=== PATIENT | female | born 1980 | race Caucasian/White ===

== ENCOUNTER 2021-05-31 21:18 | Inpatient (IN) | payer BC ==
[~2021-05-31] VITALS: Ht 172.7 cm; Wt 53.5 kg
--- NOTE | 2021-05-31 21:55 | NUR ---
Pt. cc hematuria and dysuria starting today. Pain 12/29. Vss.
--- NOTE | 2021-05-31 22:26 | NUR ---
Pt. reports her pain has worsened to 9/10, she also has a headache and flank pain. Dr. Altamirano made aware. Will continue to monitor.
--- NOTE | 2021-05-31 22:37 | NUR ---
Dr. Altamirano at bedside for mse.
[2021-05-31] MEDS ORDERED: IV NORMAL SALINE 1000 ML BAG IV ONE (22:45)
[2021-05-31] MEDS ORDERED: CEFTRIAXONE 1 G in IV DEXTROSE 5% 50 ML IV ONE (22:45)
[2021-05-31] MEDS ORDERED: MORPHINE SULFATE 2 MG/1 ML DISP.SYRIN IV ONE (22:45)
[2021-05-31] MEDS ORDERED: ONDANSETRON 4 MG/2 ML VIAL IV ONE (22:45)
[2021-05-31] MEDS ORDERED: MORPHINE SULFATE 2 MG/1 ML DISP.SYRIN ONE (22:57)
[2021-05-31] MEDS ORDERED: MORPHINE SULFATE 4 MG/1 ML DISP.SYRIN ONE (22:57)
[2021-05-31] MEDS ORDERED: ONDANSETRON 4 MG/2 ML VIAL ONE (22:57)
[2021-05-31] MEDS ORDERED: CEFTRIAXONE /D5W 50ML IVPB **ER PYXIS IV ONE (22:58)
[2021-05-31 23:06] LABS: HEMATOCRIT 35.3 % (31.2-41.9); MEAN CORPUSCULAR HEMOGLOBIN 27.8 uug (24.7-32.8); MEAN CORPUSCULAR VOLUME 84.5 fL (75.5-95.3); PLATELET COUNT (AUTO) 232 K/uL (179-408)
[2021-05-31 23:26] LABS: BILIRUBIN,DIRECT 0.1 mg/dL (0.0-0.2); BILIRUBIN,TOTAL 0.2 mg/dL (0.2-1.0); CREATININE 0.8 mg/dL (0.6-1.3); POTASSIUM 4.1 mmol/L (3.5-5.1); TOTAL PROTEIN, SERUM 6.6 g/dL (6.4-8.2)
--- NOTE | 2021-06-01 00:20 | NUR ---
US at bedside
[2021-06-01] MEDS ORDERED: MORPHINE SULFATE 10 MG/1 ML DISP.SYRIN IV ONE (01:15)
[2021-06-01] MEDS ORDERED: PROG100C15 PO (01:33)
[2021-06-01] MEDS ORDERED: testosterone (01:33)
[2021-06-01] MEDS ORDERED: ESCI5TAB PO (01:33)
[2021-06-01] MEDS ORDERED: MINO2.5T PO (01:33)
[2021-06-01] MEDS ORDERED: PRED20TA PO (01:33)
[2021-06-01] MEDS ORDERED: TAMS-3 PO (01:33)
[2021-06-01] MEDS ORDERED: CIPR-262 PO (01:33)
[2021-06-01 01:34] LABS: *BILIRUBIN,URIN NEGATIVE (NEGATIVE); *BLOOD, URINE NEGATIVE (NEGATIVE); *CLARITY,URINE CLEAR (CLEAR); *COLOR,URINE YELLOW (YELLOW); *KETONES,URINE NEGATIVE (NEGATIVE); *UROBILINOGEN,URINE 0.2 E.U./dl (NORMAL); LEUKOCYTE ESTERASE ,URINE NEGATIVE (NEGATIVE); NITRITE, URINE NEGATIVE (NEGATIVE); UGLUCOSE NEGATIVE (NEGATIVE)
[2021-06-01] MEDS ORDERED: MORPHINE SULFATE 4 MG/1 ML DISP.SYRIN ONE (01:37)
[2021-06-01] MEDS ORDERED: MORPHINE SULFATE 2 MG/1 ML DISP.SYRIN ONE (01:38)
[2021-06-01 01:39] LABS: *URINE HCG, QUAL NEGATIVE (NEGATIVE)
[2021-06-01] MEDS ORDERED: diphenhydrAMINE 50 MG/1 ML VIAL ONE (02:28)
[2021-06-01] MEDS ORDERED: ACETAMINOPHEN 325 MG TABLET PO PRN ×2 (04:15→04:30)
[2021-06-01] MEDS ORDERED: MORPHINE SULFATE 2 MG/1 ML DISP.SYRIN IV PRN (04:15)
[2021-06-01] MEDS ORDERED: ONDANSETRON 4 MG/2 ML VIAL IV PRN (04:15)
--- NOTE | 2021-06-01 04:25 | NUR ---
See downtime paper chart for notes on patient.
[2021-06-01 04:30] VITALS: BP 91/52
[2021-06-01] MEDS ORDERED: IV NORMAL SALINE 500 ML IV ONE (05:00)
--- NOTE | 2021-06-01 05:37 | NUR ---
Pt was admitted to unit on Med Surg at 0420H. No distress at this time. Denies chest pain or SOB, denies dizziness. BP 91/52, Carloz Maxwell TOASTER ELEMENT REPAIRER notified with orders for 500cc bolus. Pt tolerated well. Patient is AOx4 and is ambulatory. No other issues or concerns at this time, will endorse to day shift.
[2021-06-01] MEDS: PANTOPRAZOLE SODIUM 40 MG TABLET.DR PO SCH (05:57)
[2021-06-01 06:04] VITALS: BP 101/64
[2021-06-01 06:20] LABS: MEAN CORPUSCULAR HEMOGLOBIN 28.1 uug (24.7-32.8); MEAN CORPUSCULAR VOLUME 84.8 fL (75.5-95.3); PLATELET COUNT (AUTO) 194 K/uL (179-408)
[2021-06-01 06:35] LABS: CREATININE 0.6 mg/dL (0.6-1.3); POTASSIUM 3.5 mmol/L (3.5-5.1)
[2021-06-01] MEDS: MORPHINE SULFATE 2 MG/1 ML DISP.SYRIN IV PRN ×3 (06:42→21:49)
[2021-06-01] MEDS ORDERED: diphenhydrAMINE 25 MG CAP PO PRN (07:00)
[2021-06-01] MEDS ORDERED: PANTOPRAZOLE SODIUM 40 MG TABLET.DR PO SCH (07:00)
--- NOTE | 2021-06-01 07:30 | NUR ---
Patient received in bed, alert and oriented x4. Patient states she has no pain or discomforts at this time. Patient is on RA with no SOB or difficulties breathing. No acute distress at this time. Left AC IV is intact and patent with no redness or swelling noted at this time. Personal belongings and call light within easy reach. Will continue to monitor.
[2021-06-01] MEDS: ONDANSETRON 4 MG/2 ML VIAL IV PRN ×2 (08:34→21:44)
[2021-06-01] MEDS: ESCITALOPRAM OXALATE 10 MG TABLET PO SCH (08:35)
[2021-06-01] MEDS: MINOXIDIL 2.5 MG TABLET PO SCH (08:35)
[2021-06-01] MEDS ORDERED: MINOXIDIL 2.5 MG TABLET PO SCH (09:00)
[2021-06-01 12:00] VITALS: BP 89/48
--- NOTE | 2021-06-01 13:00 | NUR ---
Patient states that the morphine has not been helping her pain and that she feels constipated. Epic provider Dr. Hawkins notified and she states that she will put in new orders. Will continue to monitor.
[2021-06-01 15:57] VITALS: BP 89/48
[2021-06-01] MEDS: DOCUSATE SODIUM 100 MG CAPSULE PO SCH ×2 (17:12→21:42)
[2021-06-01] MEDS: predniSONE 20 MG TABLET PO SCH (17:12)
--- NOTE | 2021-06-01 19:00 | NUR ---
RECEIVED REPORT FROM NIKHIL RICE PT C/O PAIN AN CHIEF COMPLAINT AND CONSTIPATION FROM NARCOTIC GIVEN FOR PAIN PT PT GIVEN COLACE NO ADVERSE REACTION NOTED.
[2021-06-01 20:00] VITALS: BP 103/71
[2021-06-01] MEDS ORDERED: TAMSULOSIN HCL 0.4 MG CAP.SR.24H PO SCH ×2 (21:00)
[2021-06-02] MEDS: MORPHINE SULFATE 2 MG/1 ML DISP.SYRIN IV PRN ×3 (00:02→07:17)
[2021-06-02 04:00] VITALS: BP 102/68
[2021-06-02] MEDS: ONDANSETRON 4 MG/2 ML VIAL IV PRN ×2 (04:35→12:53)
[2021-06-02 06:33] LABS: HEMATOCRIT 33.9 % (31.2-41.9); MEAN CORPUSCULAR HEMOGLOBIN 27.9 uug (24.7-32.8); MEAN CORPUSCULAR VOLUME 84.1 fL (75.5-95.3); PLATELET COUNT (AUTO) 224 K/uL (179-408)
[2021-06-02] MEDS: PANTOPRAZOLE SODIUM 40 MG TABLET.DR PO SCH (06:39)
[2021-06-02 07:02] LABS: CREATININE 0.7 mg/dL (0.6-1.3); MAGNESIUM 2.1 mg/dL (1.8-2.4); PHOSPHOROUS 3.8 mg/dL (2.5-4.9); POTASSIUM 3.7 mmol/L (3.5-5.1)
[2021-06-02] MEDS ORDERED: MORPHINE SULFATE 4 MG/1 ML DISP.SYRIN IV PRN (07:45)
[2021-06-02] MEDS: predniSONE 20 MG TABLET PO SCH (07:49)
[2021-06-02] MEDS: DOCUSATE SODIUM 100 MG CAPSULE PO SCH (09:03)
[2021-06-02] MEDS: MINOXIDIL 2.5 MG TABLET PO SCH (09:03)
[2021-06-02] MEDS: ESCITALOPRAM OXALATE 10 MG TABLET PO SCH (09:03)
[2021-06-02 11:32] VITALS: BP 95/48
[2021-06-02] MEDS ORDERED: HYDR-3972 PO (11:40)
[2021-06-02] MEDS ORDERED: LACTULOSE 20 G/30 ML LIQUID UDC PO ONE (11:45)
[2021-06-02] MEDS ORDERED: SORBITOL 70% SOLUTION 30 ML UDC PO ONE (11:45)
--- NOTE | 2021-06-02 13:26 | NUR ---
Patient discharged in satisfactory condition. Patient was picked up by her sister with all her personal belongings. She was also instructed on picking up her new medications from the pharmacy and to follow up with her primary care provider in one week. All pertinent information was given to her and she expressed understanding. Discharged in satisfactory condition.
== END 2021-06-02 13:30 | disposition home or self-care (01) | DRG 392 ==
LOC: ER 21:21 → MEDSURG3 06-01 04:03 → ER 06-01 04:15
PROVIDERS: ADMIT Nurse Practitioner Acute Care; ATTEND Nurse Practitioner Acute Care
DX: K59.00 Constipation, unspecified (principal); M54.9 Dorsalgia, unspecified; R11.2 Nausea with vomiting, unspecified; Z20.822 Contact with and (suspected) exposure to COVID-19; D64.9 Anemia, unspecified
CPT/HCPCS: 36415; 76770; 76856; 83690; 83735; 84100; 84703; 85025; 85730; 87086; A4663; G0378; J0696; J1200; J2270; J2405; J7030; J7040; J7512

== ENCOUNTER 2021-12-03 14:40 | Inpatient (IN) | payer BC, OTHER ==
[~2021-12-03] VITALS: Ht 172.7 cm; Wt 60.3 kg
[~2021-12-03 14:40] MED LIST: ESCI5TAB PO; HYDR-3972 PO; MINO2.5T PO; PRED20TA PO; PROG100C15 PO; TAMS-3 PO; testosterone
[2021-12-03] MEDS ORDERED: diphenhydrAMINE 50 MG/1 ML VIAL IV ONE (15:00)
[2021-12-03] MEDS ORDERED: IV NORMAL SALINE 1000 ML BAG IV ONE (15:00)
[2021-12-03] MEDS ORDERED: METOCLOPRAMIDE HCL 10 MG/2 ML VIAL IV ONE (15:00)
[2021-12-03] MEDS ORDERED: diphenhydrAMINE 50 MG/1 ML VIAL ONE (15:13)
[2021-12-03] MEDS ORDERED: METOCLOPRAMIDE HCL 10 MG/2 ML VIAL ONE (15:13)
[2021-12-03 15:31] LABS: *BILIRUBIN,URIN NEGATIVE (NEGATIVE); *BLOOD, URINE NEGATIVE (NEGATIVE); *CLARITY,URINE CLEAR (CLEAR); *COLOR,URINE YELLOW (YELLOW); *KETONES,URINE NEGATIVE (NEGATIVE); *UROBILINOGEN,URINE 0.2 E.U./dl (NORMAL); LEUKOCYTE ESTERASE ,URINE NEGATIVE (NEGATIVE); NITRITE, URINE NEGATIVE (NEGATIVE); PH,URINE 5.5 (5.0-8.0); UGLUCOSE NEGATIVE (NEGATIVE)
[2021-12-03 15:40] LABS: *URINE HCG, QUAL NEG (NEGATIVE)
[2021-12-03 15:43] LABS: CREATININE 0.8 mg/dL (0.6-1.3)
[2021-12-03 15:44] LABS: HEMATOCRIT 37.6 % (31.2-41.9); MEAN CORPUSCULAR HEMOGLOBIN 30.4 uug (24.7-32.8); MEAN CORPUSCULAR VOLUME 89.5 fL (75.5-95.3); PLATELET COUNT (AUTO) 110 K/uL (179-408)
[2021-12-03] MEDS ORDERED: MAG HYDROX/AL HYDROX/SIMETH 30 ML LIQUID UDC PO ONE (15:45)
[2021-12-03] MEDS ORDERED: LIDOCAINE VISCUS 2% 15 ML UDC MM ONE (15:45)
[2021-12-03] MEDS ORDERED: FAMOTIDINE. 20 MG/2 ML VIAL IV ONE ×2 (15:45→16:08)
[2021-12-03 15:48] LABS: BILIRUBIN,DIRECT 0.2 mg/dL (0.0-0.2); BILIRUBIN,TOTAL 0.4 mg/dL (0.2-1.0); TOTAL PROTEIN, SERUM 6.8 g/dL (6.4-8.2)
[2021-12-03 16:02] LABS: *AMPHETAMINE, URINE NEGATIVE (NEGATIVE); *CANNABINOID, URINE NEGATIVE (NEGATIVE); *COCCAINE, URINE NEGATIVE (NEGATIVE); *OPIATE, URINE NEGATIVE (NEGATIVE); *PHENCYCLIDINE SCREEN,URINE NEGATIVE (NEGATIVE)
[2021-12-03] MEDS ORDERED: MAG HYDROX/AL HYDROX/SIMETH 30 ML LIQUID UDC ONE (16:07)
[2021-12-03 16:25] LABS: ETHANOL < 3 MG/DL (0-0)
[2021-12-03] MEDS ORDERED: MORPHINE SULFATE 4 MG/1 ML DISP.SYRIN IV ONE (16:45)
[2021-12-03] MEDS ORDERED: MORPHINE SULFATE 4 MG/1 ML DISP.SYRIN ONE ×2 (17:37→19:13)
[2021-12-03] MEDS ORDERED: CHOLECALCIFEROL 1,000 UNIT TABLET PO SCH (18:30)
[2021-12-03] MEDS ORDERED: METRONIDAZOLE 500 MG/NS 100 ML PIGGYBACK IV ONE (18:45)
[2021-12-03] MEDS ORDERED: VANCOMYCIN IV 1,000 MG in IV DEXTROSE 5% 250 ML IV ONE (18:45)
[2021-12-03] MEDS ORDERED: CEFTRIAXONE 1 G in IV DEXTROSE 5% 50 ML IV ONE (18:45)
[2021-12-03] MEDS ORDERED: MORPHINE SULFATE 10 MG/1 ML DISP.SYRIN IV ONE (19:00)
[2021-12-03] MEDS ORDERED: CEFTRIAXONE /D5W 50ML IVPB **ER PYXIS IV ONE (19:10)
[2021-12-03] MEDS ORDERED: MORPHINE SULFATE 2 MG/1 ML DISP.SYRIN ONE (19:13)
[2021-12-03 20:21] LABS: BAND % (MANUAL) 10 % (0-10); LYMPHOCYTES % (MANUAL) 16 % (20-40); MONOCYTES % (MANUAL) 4 % (2-10); NEUTROPHILS % (MANUAL) 70 % (42-75)
[2021-12-03] MEDS ORDERED: METRONIDAZOLE 500 MG/NS 100ML 100 ML IV ONE (20:40)
[2021-12-03] MEDS ORDERED: VANCOMYCIN IV 200 ML ONE (20:43)
[2021-12-03] MEDS: levoFLOXacin 500 MG/D5W 500 MG in PREMIXED 1 EACH IV SCH ×2 (21:30→21:45)
[2021-12-03] MEDS ORDERED: ALBUTEROL SULFATE 2.5 MG/ 0.5 ML NEBU IH PRN (23:15)
[2021-12-03] MEDS: ACETAMINOPHEN 650 MG SUPP.RECT RC PRN (23:18)
[2021-12-03 23:25] VITALS: BP 100/70
[2021-12-04] MEDS: POTASSIUM CHLORIDE 20 MEQ in IV D5 1/2 NS 1000 ML 1,000 ML IV PRN ×2 (00:48→19:03)
[2021-12-04] MEDS ORDERED: METRONIDAZOLE 500 MG/NS 100ML 100 ML IV ONE (00:48)
[2021-12-04] MEDS ORDERED: IV D5W-0.45% NS +20 KCL 1,000 ML IV ONE (00:52)
[2021-12-04] MEDS ORDERED: METRONIDAZOLE 500 MG/NS 100ML 500 MG in PREMIXED 1 EACH IV SCH ×2 (04:00→12:00)
[2021-12-04 04:20] VITALS: BP 118/82
[2021-12-04] MEDS: ACETAMINOPHEN 650 MG SUPP.RECT RC PRN ×2 (05:18→09:51)
[2021-12-04] MEDS: MORPHINE SULFATE 4 MG/1 ML DISP.SYRIN IV PRN ×3 (05:19→20:13)
[2021-12-04 06:38] LABS: HEMATOCRIT 35.3 % (31.2-41.9); MEAN CORPUSCULAR VOLUME 89.3 fL (75.5-95.3); PLATELET COUNT (AUTO) 116 K/uL (179-408)
[2021-12-04 07:37] LABS: BILIRUBIN,TOTAL 0.6 mg/dL (0.2-1.0); MAGNESIUM 1.7 mg/dL (1.8-2.4); TOTAL PROTEIN, SERUM 6.6 g/dL (6.4-8.2)
[2021-12-04] MEDS: ONDANSETRON 4 MG/2 ML VIAL IV PRN ×3 (08:09→20:14)
[2021-12-04] MEDS ORDERED: ENOXAPARIN SODIUM 40 MG/0.4 ML DISP.SYRIN SQ SCH (09:00)
[2021-12-04] MEDS ORDERED: ALBUTEROL SULFATE 8 GM HFA.AER.AD IH PRN (09:30)
[2021-12-04 12:00] VITALS: BP 102/67
[2021-12-04] MEDS: MEROPENEM 1 G in IV NORMAL SALINE 100 ML IV SCH (12:16)
[2021-12-04] MEDS: CHOLECALCIFEROL 1,000 UNIT TABLET PO SCH (12:17)
[2021-12-04 12:23] LABS: THYROID STIMULATING HORMONE 2.691 mIU/mL (0.358-3.740)
[2021-12-04] MEDS ORDERED: MAGNESIUM SULFATE/D5W 100 ML IV SCH (12:30)
[2021-12-04 13:30] LABS: THYROID STIMULATING HORMONE 2.812 mIU/mL (0.358-3.740)
[2021-12-04 16:00] VITALS: BP 101/62
[2021-12-04 17:58] LABS: *RHEUMATOID FACTOR SCREEN NEGATIVE (NEGATIVE)
[2021-12-04 20:00] VITALS: BP 109/77
[2021-12-05] VITALS: BP 105/70
[2021-12-05] MEDS: MORPHINE SULFATE 4 MG/1 ML DISP.SYRIN IV PRN ×3 (00:30→13:34)
[2021-12-05] MEDS: ONDANSETRON 4 MG/2 ML VIAL IV PRN ×5 (00:30→20:31)
[2021-12-05] MEDS: MEROPENEM 1 G in IV NORMAL SALINE 100 ML IV SCH (00:39)
[2021-12-05] MEDS: POTASSIUM CHLORIDE 20 MEQ in IV D5 1/2 NS 1000 ML 1,000 ML IV PRN ×2 (04:00→23:22)
[2021-12-05 04:21] VITALS: BP 129/84
[2021-12-05 06:59] LABS: HEMATOCRIT 38.1 % (31.2-41.9); MEAN CORPUSCULAR HEMOGLOBIN 30.3 uug (24.7-32.8); MEAN CORPUSCULAR VOLUME 87.5 fL (75.5-95.3); PLATELET COUNT (AUTO) 95 K/uL (179-408)
[2021-12-05 07:44] LABS: CREATININE 5.4 mg/dL (0.6-1.3); MAGNESIUM 2.3 mg/dL (1.8-2.4); PHOSPHOROUS 4.8 mg/dL (2.5-4.9); POTASSIUM 4.7 mmol/L (3.5-5.1); TOTAL PROTEIN, SERUM 5.9 g/dL (6.4-8.2)
[2021-12-05 08:06] LABS: *IMMUNOGLOBULIN G, SERUM 870 mg/dL (586-1602); IMMUNOGLOBULIN A, SERUM 135 mg/dL (87-352); IMMUNOGLOBULIN M, SERUM 117 mg/dL (26-217)
[2021-12-05] MEDS: CHOLECALCIFEROL 1,000 UNIT TABLET PO SCH (09:00)
[2021-12-05 11:06] LABS: *ANTI-SCLERODERMA-70 AB <0.2 AI (0.0-0.9); *SJOGREN'S ANTI-SS-A <0.2 AI (0.0-0.9); *SJOGREN'S ANTI-SS-B <0.2 AI (0.0-0.9); *SMITH ANTIBODIES <0.2 AI (0.0-0.9); ANTI-DNA(DS) AB, QN 1 IU/mL (0-9)
[2021-12-05 12:00] VITALS: BP 121/82
[2021-12-05] MEDS: SUCRALFATE 1 G/10 ML LIQUID UDC PO SCH ×3 (12:40→20:30)
[2021-12-05] MEDS: MEROPENEM 0.5 G in IV NORMAL SALINE 50 ML IV SCH ×2 (12:40→23:20)
[2021-12-05] MEDS: ACETAMINOPHEN 650 MG SUPP.RECT RC PRN ×2 (12:40→20:30)
[2021-12-05 14:06] LABS: A/G RATIO 1.2 (0.7-1.7); ALBUMIN 3.3 g/dL (2.9-4.4); ALPHA-1-GLOBULIN 0.3 g/dL (0.0-0.4); ALPHA-2-GLOBULIN 0.7 g/dL (0.4-1.0); BETA GLOBULIN 0.7 g/dL (0.7-1.3); GAMMA GLOBULIN 1.1 g/dL (0.4-1.8); GLOBULIN, TOTAL 2.8 g/dL (2.2-3.9); M-SPIKE Not Observed g/dL (Not Observed)
[2021-12-05 16:00] VITALS: BP 122/44
[2021-12-05 20:15] VITALS: BP 139/96
[2021-12-05] MEDS: PANTOPRAZOLE SODIUM 40 MG VIAL IV SCH (20:30)
[2021-12-05] MEDS: DEXAMETHASONE SOD PHOSPHATE 4 MG INJ IV SCH (23:20)
[2021-12-06 00:06] VITALS: BP 115/79
[2021-12-06 01:06] LABS: HEPATITIS A AB, IgM Negative (Negative)
[2021-12-06 02:06] LABS: HEPATITIS B SURFACE AG Negative (Negative)
[2021-12-06 04:12] VITALS: BP 103/74
[2021-12-06 07:42] LABS: HEMATOCRIT 36.1 % (31.2-41.9); MEAN CORPUSCULAR HEMOGLOBIN 30.1 uug (24.7-32.8); MEAN CORPUSCULAR VOLUME 87.9 fL (75.5-95.3); PLATELET COUNT (AUTO) 99 K/uL (179-408)
[2021-12-06 08:00] LABS: AMYLASE 129 U/L (25-115); LIPASE 721 U/L (73-393)
[2021-12-06 08:08] LABS: BILIRUBIN,TOTAL 1.3 mg/dL (0.2-1.0); POTASSIUM 5.3 mmol/L (3.5-5.1); TOTAL PROTEIN, SERUM 5.5 g/dL (6.4-8.2)
[2021-12-06] MEDS: IV NS 1000 ML 1,000 ML IV PRN ×2 (08:20→19:33)
[2021-12-06 08:58] LABS: CREATININE 8.9 mg/dL (0.6-1.3)
[2021-12-06] MEDS ORDERED: ENOXAPARIN SODIUM 30 MG/0.3 ML DISP.SYRIN SQ SCH (09:00)
[2021-12-06] MEDS: CHOLECALCIFEROL 1,000 UNIT TABLET PO SCH (09:37)
[2021-12-06] MEDS: PANTOPRAZOLE SODIUM 40 MG VIAL IV SCH ×2 (09:37→21:00)
[2021-12-06] MEDS: DEXAMETHASONE SOD PHOSPHATE 4 MG INJ IV SCH ×2 (09:37→21:00)
[2021-12-06] MEDS: SUCRALFATE 1 G/10 ML LIQUID UDC PO SCH ×4 (09:37→21:05)
[2021-12-06] MEDS: ONDANSETRON 4 MG/2 ML VIAL IV PRN (11:45)
[2021-12-06 12:00] VITALS: BP 136/78
[2021-12-06] MEDS: MORPHINE SULFATE 4 MG/1 ML DISP.SYRIN IV PRN (13:22)
[2021-12-06 14:38] LABS: LYMPHOCYTES % (MANUAL) 6 % (20-40); MONOCYTES % (MANUAL) 5 % (2-10); NEUTROPHILS % (MANUAL) 89 % (42-75)
[2021-12-06 17:46] VITALS: BP 126/87
[2021-12-06] MEDS: HEPARIN SODIUM,PORCINE 5,000 UNITS/ML VIAL SQ SCH (21:05)
[2021-12-06] MEDS: MEROPENEM 0.5 G in IV NORMAL SALINE 50 ML IV SCH (23:15)
[2021-12-07] VITALS (9 sets, daily range): BP systolic 132–146; BP diastolic 72–94
[2021-12-07] MEDS: IV NS 1000 ML 1,000 ML IV PRN ×2 (03:00→09:39)
[2021-12-07 06:28] LABS: HEMATOCRIT 33.2 % (31.2-41.9); MEAN CORPUSCULAR HEMOGLOBIN 29.8 uug (24.7-32.8); MEAN CORPUSCULAR VOLUME 88.4 fL (75.5-95.3); PLATELET COUNT (AUTO) 95 K/uL (179-408)
[2021-12-07 07:06] LABS: MAGNESIUM 2.2 mg/dL (1.8-2.4); PHOSPHOROUS 5.9 mg/dL (2.5-4.9)
[2021-12-07 07:25] LABS: BILIRUBIN,TOTAL 1.1 mg/dL (0.2-1.0); POTASSIUM 5.3 mmol/L (3.5-5.1); TOTAL PROTEIN, SERUM 5.3 g/dL (6.4-8.2)
[2021-12-07 07:35] LABS: CREATININE 10.5 mg/dL (0.6-1.3)
[2021-12-07 08:58] LABS: ABG BASE EXCESS -13.2 mmol/L; ABG HCO3 11.1 mmol/L; ABG PCO2 22.4 mmHg (35.0-45.0); ABG PH 7.314 (7.350-7.450); ABG PO2 64.7 mmHg (75.0-100.0); ABG SITE LEFT RADIAL; COHb 0.3 % (0.5-1.5); MetHb 0.1 % (0.0-1.5); O2Hb 92.3 % (94.0-97.0)
[2021-12-07] MEDS: DEXAMETHASONE SOD PHOSPHATE 4 MG INJ IV SCH ×2 (09:21→20:44)
[2021-12-07] MEDS: CHOLECALCIFEROL 1,000 UNIT TABLET PO SCH (09:22)
[2021-12-07] MEDS: PANTOPRAZOLE SODIUM 40 MG VIAL IV SCH ×2 (09:22→20:44)
[2021-12-07] MEDS: HEPARIN SODIUM,PORCINE 5,000 UNITS/ML VIAL SQ SCH ×2 (09:22→21:14)
[2021-12-07] MEDS: SUCRALFATE 1 G/10 ML LIQUID UDC PO SCH ×4 (09:22→21:00)
[2021-12-07] MEDS: SODIUM BICARBONATE 8.4% 150 MEQ in IV D5W 1000ML 1,000 ML IV SCH ×2 (11:50→20:52)
[2021-12-07 14:15] LABS: *BILIRUBIN,URIN 1+ (NEGATIVE); *BLOOD, URINE 3+ (NEGATIVE); *CLARITY,URINE TURBID (CLEAR); *COLOR,URINE Brown (YELLOW); *KETONES,URINE 1+ (NEGATIVE); LEUKOCYTE ESTERASE ,URINE NEGATIVE (NEGATIVE); NITRITE, URINE NEGATIVE (NEGATIVE); UGLUCOSE NEGATIVE (NEGATIVE)
[2021-12-07 17:38] LABS: RBC,URINE TNTC /HPF (0-3)
[2021-12-07 17:39] LABS: BACTERIA,URINE FEW /HPF (NONE SEEN); SQUAMOUS EPITHELIAL CELL,UR FEW /HPF (NONE SEEN)
[2021-12-07 18:42] LABS: ABG BASE EXCESS -10.6 mmol/L; ABG HCO3 12.8 mmol/L; ABG PCO2 22.4 mmHg (35.0-45.0); ABG PH 7.374 (7.350-7.450); ABG PO2 50.2 mmHg (75.0-100.0); ABG SITE LEFT FEMORAL; ABG TOTAL HEMOGLOBIN 11.7 G/dL (12.0-16.0); COHb 0.3 % (0.5-1.5); MetHb 0.3 % (0.0-1.5); O2Hb 86.4 % (94.0-97.0); VENT MODE ROOM AIR
[2021-12-07] MEDS: MEROPENEM 0.5 G in IV NORMAL SALINE 50 ML IV SCH (23:44)
[2021-12-08] VITALS (34 sets, daily range): BP systolic 97–153; BP diastolic 41–88
[2021-12-08] MEDS ORDERED: SUCCINYLCHOLINE CHLORIDE 200 MG/10 ML VIAL IV ONE ×2 (03:15→03:30)
[2021-12-08] MEDS ORDERED: NOREPINEPHRINE BITARTRATE 8 MG in IV NORMAL SALINE 242 ML IV PRN (03:15)
[2021-12-08] MEDS ORDERED: ETOMIDATE 20 MG/10 ML VIAL IV ONE ×2 (03:15→03:30)
[2021-12-08] MEDS ORDERED: PROPOFOL 100 ML IV ONE (03:30)
[2021-12-08] MEDS ORDERED: NOREPINEPHRINE BITARTRATE 4 MG/4 ML VIAL IV ONE (03:46)
[2021-12-08] MEDS: PROPOFOL 100 ML IV PRN ×4 (03:47→19:14)
[2021-12-08 04:17] LABS: ABG BASE EXCESS -0.9 mmol/L; ABG HCO3 21.4 mmol/L; ABG PCO2 28.5 mmHg (35.0-45.0); ABG PH 7.493 (7.350-7.450); ABG SITE RIGHT RADIAL; ABG TOTAL HEMOGLOBIN 12.1 G/dL (12.0-16.0); COHb 0.3 % (0.5-1.5); MetHb 0.1 % (0.0-1.5); O2Hb 89.2 % (94.0-97.0); VENT MODE VENT - A/C; VT, ABG 450 mL
[2021-12-08 05:30] LABS: HEMATOCRIT 31.6 % (31.2-41.9); MEAN CORPUSCULAR HEMOGLOBIN 30.2 uug (24.7-32.8); MEAN CORPUSCULAR VOLUME 86.9 fL (75.5-95.3); PLATELET COUNT (AUTO) 72 K/uL (179-408)
[2021-12-08] MEDS: SODIUM BICARBONATE 8.4% 150 MEQ in IV D5W 1000ML 1,000 ML IV SCH (05:47)
[2021-12-08 06:49] LABS: BILIRUBIN,DIRECT 0.8 mg/dL (0.0-0.2); BILIRUBIN,TOTAL 1.2 mg/dL (0.2-1.0); MAGNESIUM 1.8 mg/dL (1.8-2.4); PHOSPHOROUS 3.9 mg/dL (2.5-4.9); POTASSIUM 3.5 mmol/L (3.5-5.1); TOTAL PROTEIN, SERUM 4.8 g/dL (6.4-8.2)
[2021-12-08 06:52] LABS: CREATININE 7.5 mg/dL (0.6-1.3)
[2021-12-08 08:06] LABS: COMPLEMENT, C3 SERUM 21 mg/dL (82-167); COMPLEMENT, C4 SERUM <2 mg/dL (12-38)
[2021-12-08] MEDS: DEXAMETHASONE SOD PHOSPHATE 4 MG INJ IV SCH ×2 (08:36→20:52)
[2021-12-08] MEDS: HEPARIN SODIUM,PORCINE 5,000 UNITS/ML VIAL SQ SCH ×3 (08:37→22:42)
[2021-12-08] MEDS: CHOLECALCIFEROL 1,000 UNIT TABLET PO SCH (08:37)
[2021-12-08] MEDS: PANTOPRAZOLE SODIUM 40 MG VIAL IV SCH ×2 (08:37→20:52)
[2021-12-08] MEDS: SUCRALFATE 1 G/10 ML LIQUID UDC PO SCH ×2 (08:42→13:00)
[2021-12-08 09:06] LABS: *ANTI-SCLERODERMA-70 AB <0.2 AI (0.0-0.9); *SJOGREN'S ANTI-SS-A <0.2 AI (0.0-0.9); *SJOGREN'S ANTI-SS-B <0.2 AI (0.0-0.9); *SMITH ANTIBODIES <0.2 AI (0.0-0.9); ANTI-DNA(DS) AB, QN 1 IU/mL (0-9)
[2021-12-08] MEDS: LACTULOSE 20 G/30 ML LIQUID UDC PO SCH ×2 (15:42→17:23)
[2021-12-08] MEDS: RIFAXIMIN 550 MG TABLET GT SCH ×2 (15:43→20:58)
[2021-12-08] MEDS: DOXYCYCLINE HYCLATE IV 100 MG in IV DEXTROSE 5% 100 ML IV SCH (23:04)
[2021-12-08] MEDS: MEROPENEM 0.5 G in IV NORMAL SALINE 50 ML IV SCH (23:04)
[2021-12-09] VITALS (23 sets, daily range): BP systolic 92–124; BP diastolic 56–77
[2021-12-09] MEDS: LACTULOSE 20 G/30 ML LIQUID UDC PO SCH ×5 (00:57→23:30)
[2021-12-09] MEDS: PROPOFOL 100 ML IV PRN ×3 (02:10→18:34)
[2021-12-09 05:11] LABS: HEMATOCRIT 28.9 % (31.2-41.9); MEAN CORPUSCULAR HEMOGLOBIN 30.4 uug (24.7-32.8); MEAN CORPUSCULAR VOLUME 87.2 fL (75.5-95.3); PLATELET COUNT (AUTO) 78 K/uL (179-408)
[2021-12-09 05:34] LABS: MAGNESIUM 1.9 mg/dL (1.8-2.4); PHOSPHOROUS 5.7 mg/dL (2.5-4.9)
[2021-12-09 05:35] LABS: BILIRUBIN,TOTAL 1.3 mg/dL (0.2-1.0); CREATININE 6.7 mg/dL (0.6-1.3); TOTAL PROTEIN, SERUM 4.6 g/dL (6.4-8.2)
[2021-12-09 07:23] LABS: BAND % (MANUAL) 4 % (0-10); LYMPHOCYTES % (MANUAL) 8 % (20-40); METAMYELOCYTES % 2 % (0-1); MONOCYTES % (MANUAL) 16 % (2-10); NEUTROPHILS % (MANUAL) 68 % (42-75)
[2021-12-09 07:34] LABS: ABG BASE EXCESS -1.3 mmol/L; ABG HCO3 21.4 mmol/L; ABG PCO2 29.2 mmHg (35.0-45.0); ABG PH 7.483 (7.350-7.450); ABG PO2 72.2 mmHg (75.0-100.0); ABG SITE LEFT BRACHIAL; ABG TOTAL HEMOGLOBIN 10.5 G/dL (12.0-16.0); COHb 0.2 % (0.5-1.5); MetHb 0.3 % (0.0-1.5); O2Hb 93.8 % (94.0-97.0); VENT MODE VENT - A/C; VT, ABG 450 mL
[2021-12-09] MEDS: CHOLECALCIFEROL 1,000 UNIT TABLET PO SCH (08:09)
[2021-12-09] MEDS: RIFAXIMIN 550 MG TABLET GT SCH ×2 (08:09→21:04)
[2021-12-09] MEDS: PANTOPRAZOLE SODIUM 40 MG VIAL IV SCH ×2 (08:09→21:04)
[2021-12-09] MEDS: DEXAMETHASONE SOD PHOSPHATE 4 MG INJ IV SCH ×2 (08:09→21:04)
[2021-12-09] MEDS: DOXYCYCLINE HYCLATE IV 100 MG in IV DEXTROSE 5% 100 ML IV SCH ×2 (08:10→21:06)
[2021-12-09] MEDS: HEPARIN SODIUM,PORCINE 5,000 UNITS/ML VIAL SQ SCH ×2 (08:11→21:00)
[2021-12-09] MEDS: MEROPENEM 0.5 G in IV NORMAL SALINE 50 ML IV SCH (22:22)
[2021-12-10] VITALS (23 sets, daily range): BP systolic 112–144; BP diastolic 65–91
[2021-12-10] MEDS: PROPOFOL 100 ML IV PRN ×3 (02:24→18:05)
[2021-12-10] MEDS: LACTULOSE 20 G/30 ML LIQUID UDC PO SCH (05:10)
[2021-12-10 05:40] LABS: HEMATOCRIT 27.2 % (31.2-41.9); MEAN CORPUSCULAR HEMOGLOBIN 30.4 uug (24.7-32.8); MEAN CORPUSCULAR VOLUME 87.6 fL (75.5-95.3); PLATELET COUNT (AUTO) 72 K/uL (179-408)
[2021-12-10 05:42] LABS: NEUTROPHILS % (MANUAL) 0 % (42-75)
[2021-12-10 06:27] LABS: BILIRUBIN,DIRECT 0.9 mg/dL (0.0-0.2); BILIRUBIN,TOTAL 1.1 mg/dL (0.2-1.0); CREATININE 6.1 mg/dL (0.6-1.3); MAGNESIUM 2.2 mg/dL (1.8-2.4); PHOSPHOROUS 5.3 mg/dL (2.5-4.9); TOTAL PROTEIN, SERUM 4.9 g/dL (6.4-8.2)
[2021-12-10 08:24] LABS: ABG HCO3 23.6 mmol/L; ABG PCO2 30.4 mmHg (35.0-45.0); ABG PH 7.508 (7.350-7.450); ABG PO2 84.9 mmHg (75.0-100.0); ABG SITE LEFT RADIAL; ABG TOTAL HEMOGLOBIN 9.7 G/dL (12.0-16.0); COHb 0.2 % (0.5-1.5); MetHb 0.3 % (0.0-1.5); O2Hb 95.8 % (94.0-97.0); VENT MODE VENT - A/C; VT, ABG 450 mL
[2021-12-10] MEDS: CHOLECALCIFEROL 1,000 UNIT TABLET PO SCH (08:34)
[2021-12-10] MEDS: RIFAXIMIN 550 MG TABLET GT SCH ×2 (08:35→21:12)
[2021-12-10] MEDS: PANTOPRAZOLE SODIUM 40 MG VIAL IV SCH ×2 (08:35→20:59)
[2021-12-10] MEDS: DEXAMETHASONE SOD PHOSPHATE 4 MG INJ IV SCH ×2 (08:35→20:59)
[2021-12-10] MEDS: HEPARIN SODIUM,PORCINE 5,000 UNITS/ML VIAL SQ SCH ×2 (08:36→20:59)
[2021-12-10] MEDS: DOXYCYCLINE HYCLATE IV 100 MG in IV DEXTROSE 5% 100 ML IV SCH ×2 (08:36→23:19)
[2021-12-10] MEDS: MEROPENEM 0.5 G in IV NORMAL SALINE 50 ML IV SCH (23:19)
[2021-12-11] VITALS (24 sets, daily range): BP systolic 101–141; BP diastolic 55–94
[2021-12-11] MEDS: PROPOFOL 100 ML IV PRN ×4 (01:21→23:55)
[2021-12-11] MEDS: RIFAXIMIN 550 MG TABLET GT SCH ×2 (08:29→20:38)
[2021-12-11] MEDS: LACTULOSE 20 G/30 ML LIQUID UDC PO SCH (08:29)
[2021-12-11] MEDS: DEXAMETHASONE SOD PHOSPHATE 4 MG INJ IV SCH ×2 (08:30→20:38)
[2021-12-11] MEDS: DOXYCYCLINE HYCLATE IV 100 MG in IV DEXTROSE 5% 100 ML IV SCH ×2 (08:30→20:38)
[2021-12-11] MEDS: PANTOPRAZOLE SODIUM 40 MG VIAL IV SCH ×2 (08:30→20:37)
[2021-12-11] MEDS: HEPARIN SODIUM,PORCINE 5,000 UNITS/ML VIAL SQ SCH ×2 (08:31→20:37)
[2021-12-11] MEDS: CHOLECALCIFEROL 1,000 UNIT TABLET PO SCH (08:31)
[2021-12-11] MEDS ORDERED: NEPRO 1000 ML GT PRN (10:45)
[2021-12-12] VITALS (49 sets, daily range): BP systolic 102–174; BP diastolic 63–104
[2021-12-12] MEDS: MEROPENEM 0.5 G in IV NORMAL SALINE 50 ML IV SCH (00:47)
[2021-12-12 06:31] LABS: HEMATOCRIT 26.2 % (31.2-41.9); MEAN CORPUSCULAR HEMOGLOBIN 30.4 uug (24.7-32.8); MEAN CORPUSCULAR VOLUME 88.4 fL (75.5-95.3); PLATELET COUNT (AUTO) 96 K/uL (179-408)
[2021-12-12 06:56] LABS: BILIRUBIN,TOTAL 1.2 mg/dL (0.2-1.0); CREATININE 3.2 mg/dL (0.6-1.3); MAGNESIUM 2.1 mg/dL (1.8-2.4); PHOSPHOROUS 4.4 mg/dL (2.5-4.9); POTASSIUM 3.2 mmol/L (3.5-5.1); TOTAL PROTEIN, SERUM 5.8 g/dL (6.4-8.2)
[2021-12-12 08:06] LABS: ABG BASE EXCESS 1.6 mmol/L; ABG HCO3 24.4 mmol/L; ABG PCO2 31.9 mmHg (35.0-45.0); ABG PH 7.501 (7.350-7.450); ABG PO2 78.1 mmHg (75.0-100.0); ABG SITE LEFT RADIAL; ABG TOTAL HEMOGLOBIN 10.3 G/dL (12.0-16.0); COHb 0.2 % (0.5-1.5); MetHb 0.1 % (0.0-1.5); O2Hb 95.1 % (94.0-97.0); VENT MODE VENT - CPAP
[2021-12-12] MEDS: DOXYCYCLINE HYCLATE IV 100 MG in IV DEXTROSE 5% 100 ML IV SCH ×2 (08:26→20:26)
[2021-12-12] MEDS: RIFAXIMIN 550 MG TABLET GT SCH ×2 (08:26→20:26)
[2021-12-12] MEDS: LACTULOSE 20 G/30 ML LIQUID UDC PO SCH (08:27)
[2021-12-12] MEDS: DEXAMETHASONE SOD PHOSPHATE 4 MG INJ IV SCH ×2 (08:28→20:26)
[2021-12-12] MEDS: PANTOPRAZOLE SODIUM 40 MG VIAL IV SCH ×2 (08:28→20:26)
[2021-12-12] MEDS: CHOLECALCIFEROL 1,000 UNIT TABLET PO SCH (08:28)
[2021-12-12] MEDS: HEPARIN SODIUM,PORCINE 5,000 UNITS/ML VIAL SQ SCH ×2 (08:31→20:32)
[2021-12-12 11:07] LABS: ANTI-MITOCHONDRIAL AB <20.0 Units (0.0-20.0)
[2021-12-12] MEDS ORDERED: DC PROPOFOL ONCE EXTUBATED XX PRN (11:45)
[2021-12-12] MEDS: PROPOFOL 100 ML IV PRN (12:16)
[2021-12-12] MEDS ORDERED: OLANZAPINE 10 MG VIAL IM ONE (19:30)
[2021-12-12] MEDS: POTASSIUM CHLORIDE 50 ML IV SCH ×2 (20:42→23:19)
[2021-12-12] MEDS: PRECEDEX 400 MCG/100 ML BOTTLE 100 ML IV PRN (21:11)
[2021-12-13] VITALS (40 sets, daily range): BP systolic 90–174; BP diastolic 46–98
[2021-12-13] MEDS ORDERED: BUMETANIDE 1 MG/4 ML VIAL IV ONE (00:45)
[2021-12-13] MEDS ORDERED: KETAMINE HCL 100 MG in IV NORMAL SALINE 100 ML IV PRN (01:00)
[2021-12-13 01:15] LABS: ABG BASE EXCESS -2.7 mmol/L; ABG HCO3 20.5 mmol/L; ABG PCO2 28.5 mmHg (35.0-45.0); ABG PH 7.474 (7.350-7.450); ABG PO2 92.8 mmHg (75.0-100.0); ABG SITE RIGHT BRACHIAL; ABG TOTAL HEMOGLOBIN 7.3 G/dL (12.0-16.0); COHb 0.3 % (0.5-1.5); MetHb 0.6 % (0.0-1.5); O2Hb 95.6 % (94.0-97.0)
[2021-12-13] MEDS ORDERED: KETAMINE HCL 500 MG/10 ML INJ ONE (01:45)
[2021-12-13] MEDS: ACETAMINOPHEN 650 MG SUPP.RECT RC PRN (01:49)
[2021-12-13] MEDS: PRECEDEX 400 MCG/100 ML BOTTLE 100 ML IV PRN ×3 (02:09→19:07)
[2021-12-13] MEDS ORDERED: HALOPERIDOL LACTATE 5 MG/1 ML VIAL IV PRN (02:15)
[2021-12-13] MEDS: LORAZEPAM 2 MG/1 ML VIAL IV PRN ×3 (02:16→19:37)
[2021-12-13] MEDS: hydrALAZINE HCL 20 MG/1 ML VIAL IV PRN (04:40)
[2021-12-13] MEDS: IV NORMAL SALINE 250 ML IV PRN ×2 (05:22→21:15)
[2021-12-13 05:25] LABS: HEMATOCRIT 22.1 % (31.2-41.9); MEAN CORPUSCULAR HEMOGLOBIN 29.9 uug (24.7-32.8); MEAN CORPUSCULAR VOLUME 87.7 fL (75.5-95.3); PLATELET COUNT (AUTO) 73 K/uL (179-408)
[2021-12-13 05:41] LABS: BILIRUBIN,DIRECT 0.9 mg/dL (0.0-0.2); BILIRUBIN,TOTAL 1.2 mg/dL (0.2-1.0); CREATININE 5.6 mg/dL (0.6-1.3); MAGNESIUM 2.2 mg/dL (1.8-2.4); PHOSPHOROUS 4.2 mg/dL (2.5-4.9); POTASSIUM 3.5 mmol/L (3.5-5.1); TOTAL PROTEIN, SERUM 5.1 g/dL (6.4-8.2)
[2021-12-13 07:51] LABS: ABG BASE EXCESS -2.2 mmol/L; ABG HCO3 21.1 mmol/L; ABG PCO2 31.3 mmHg (35.0-45.0); ABG PH 7.447 (7.350-7.450); ABG PO2 160.7 mmHg (75.0-100.0); ABG SITE LEFT RADIAL; ABG TOTAL HEMOGLOBIN 10.4 G/dL (12.0-16.0); COHb 0.3 % (0.5-1.5); MetHb 0.1 % (0.0-1.5); O2Hb 98.4 % (94.0-97.0); VENT MODE HF - Aquinox
[2021-12-13] MEDS: LACTULOSE 20 G/30 ML LIQUID UDC PO SCH (08:05)
[2021-12-13] MEDS: DEXAMETHASONE SOD PHOSPHATE 4 MG INJ IV SCH ×2 (08:05→20:07)
[2021-12-13] MEDS: PANTOPRAZOLE SODIUM 40 MG VIAL IV SCH (08:05)
[2021-12-13] MEDS: CHOLECALCIFEROL 1,000 UNIT TABLET PO SCH (08:05)
[2021-12-13] MEDS: HEPARIN SODIUM,PORCINE 5,000 UNITS/ML VIAL SQ SCH (08:06)
[2021-12-13] MEDS: RIFAXIMIN 550 MG TABLET GT SCH ×2 (08:08→20:07)
[2021-12-13] MEDS ORDERED: THIAMINE HCL 200 MG/2 ML VIAL IV ONE (09:15)
[2021-12-13] MEDS ORDERED: CHLORDIAZEPOXIDE HCL 5 MG CAPSULE NG SCH (09:30)
[2021-12-13] MEDS ORDERED: DEXTROSE 5% IV ONE (11:00)
[2021-12-13] MEDS ORDERED: THIAMINE HCL IV ONE (11:00)
[2021-12-13] MEDS: CHLORDIAZEPOXIDE HCL 5 MG CAPSULE GT SCH ×2 (13:03→20:08)
[2021-12-13] MEDS: PANTOPRAZOLE ORAL SUSPENSION 40 MG SUSPDR.PKT GT SCH (20:07)
[2021-12-14] VITALS (26 sets, daily range): BP systolic 115–172; BP diastolic 62–95
[2021-12-14] MEDS: LORAZEPAM 2 MG/1 ML VIAL IV PRN ×4 (00:38→13:42)
[2021-12-14] MEDS: CHLORDIAZEPOXIDE HCL 5 MG CAPSULE GT SCH ×4 (01:58→20:04)
[2021-12-14 05:48] LABS: HEMATOCRIT 23.9 % (31.2-41.9); MEAN CORPUSCULAR HEMOGLOBIN 29.3 uug (24.7-32.8); MEAN CORPUSCULAR VOLUME 87.7 fL (75.5-95.3); PLATELET COUNT (AUTO) 101 K/uL (179-408)
[2021-12-14 06:16] LABS: BILIRUBIN,DIRECT 0.8 mg/dL (0.0-0.2); BILIRUBIN,TOTAL 1.2 mg/dL (0.2-1.0); CREATININE 4.5 mg/dL (0.6-1.3); MAGNESIUM 2.1 mg/dL (1.8-2.4); PHOSPHOROUS 4.6 mg/dL (2.5-4.9); POTASSIUM 3.9 mmol/L (3.5-5.1); TOTAL PROTEIN, SERUM 5.1 g/dL (6.4-8.2)
[2021-12-14] MEDS: DEXAMETHASONE SOD PHOSPHATE 4 MG INJ IV SCH ×2 (08:06→20:04)
[2021-12-14] MEDS: CHOLECALCIFEROL 1,000 UNIT TABLET PO SCH (08:06)
[2021-12-14] MEDS: PANTOPRAZOLE ORAL SUSPENSION 40 MG SUSPDR.PKT GT SCH ×2 (08:06→20:04)
[2021-12-14] MEDS: LACTULOSE 20 G/30 ML LIQUID UDC PO SCH (08:06)
[2021-12-14] MEDS: RIFAXIMIN 550 MG TABLET GT SCH (08:07)
[2021-12-14] MEDS: THIAMINE HCL 100 MG TABLET GT SCH (08:19)
[2021-12-14 08:48] LABS: ABG HCO3 18.7 mmol/L; ABG PCO2 24.2 mmHg (35.0-45.0); ABG PH 7.505 (7.350-7.450); ABG PO2 72.7 mmHg (75.0-100.0); ABG SITE RIGHT RADIAL; ABG TOTAL HEMOGLOBIN 11.8 G/dL (12.0-16.0); COHb 0.3 % (0.5-1.5); MetHb 0.3 % (0.0-1.5); O2Hb 95.1 % (94.0-97.0); VENT MODE HF
[2021-12-14] MEDS ORDERED: THIAMINE HCL 200 MG/2 ML VIAL IV SCH (09:00)
[2021-12-14] MEDS: PRECEDEX 400 MCG/100 ML BOTTLE 100 ML IV PRN ×2 (12:26→19:42)
[2021-12-14] MEDS: IV NORMAL SALINE 250 ML IV PRN (19:41)
[2021-12-14] MEDS ORDERED: hydrALAZINE HCL 25 MG TABLET PO PRN (22:15)
[2021-12-14] MEDS: hydrALAZINE HCL 20 MG/1 ML VIAL IV PRN (22:27)
[2021-12-15] VITALS (24 sets, daily range): BP systolic 48–157; BP diastolic 24–92
[2021-12-15] MEDS: CHLORDIAZEPOXIDE HCL 5 MG CAPSULE GT SCH ×4 (02:09→20:36)
[2021-12-15] MEDS: LORAZEPAM 2 MG/1 ML VIAL IV PRN ×3 (03:30→23:50)
[2021-12-15 05:11] LABS: HEMATOCRIT 22.9 % (31.2-41.9); MEAN CORPUSCULAR HEMOGLOBIN 29.9 uug (24.7-32.8); MEAN CORPUSCULAR VOLUME 87.9 fL (75.5-95.3); PLATELET COUNT (AUTO) 118 K/uL (179-408)
[2021-12-15 05:23] LABS: CREATININE 6.3 mg/dL (0.6-1.3); MAGNESIUM 2.2 mg/dL (1.8-2.4); PHOSPHOROUS 5.7 mg/dL (2.5-4.9); POTASSIUM 3.9 mmol/L (3.5-5.1); TOTAL PROTEIN, SERUM 5.2 g/dL (6.4-8.2)
[2021-12-15] MEDS: PRECEDEX 400 MCG/100 ML BOTTLE 100 ML IV PRN ×2 (06:15→22:33)
[2021-12-15] MEDS: LACTULOSE 20 G/30 ML LIQUID UDC PO SCH ×2 (08:17→20:36)
[2021-12-15] MEDS: PANTOPRAZOLE ORAL SUSPENSION 40 MG SUSPDR.PKT GT SCH ×2 (08:17→20:36)
[2021-12-15] MEDS: CHOLECALCIFEROL 1,000 UNIT TABLET PO SCH (08:18)
[2021-12-15] MEDS: THIAMINE HCL 100 MG TABLET GT SCH (08:18)
[2021-12-15] MEDS: DEXAMETHASONE SOD PHOSPHATE 4 MG INJ IV SCH ×2 (08:18→20:36)
[2021-12-15] MEDS: MORPHINE SULFATE 4 MG/1 ML DISP.SYRIN IV PRN (16:29)
[2021-12-16] VITALS (24 sets, daily range): BP systolic 113–150; BP diastolic 61–93
[2021-12-16] MEDS: CHLORDIAZEPOXIDE HCL 5 MG CAPSULE GT SCH ×2 (01:46→08:08)
[2021-12-16 05:08] LABS: HEMATOCRIT 27.9 % (31.2-41.9); MEAN CORPUSCULAR HEMOGLOBIN 29.6 uug (24.7-32.8); MEAN CORPUSCULAR VOLUME 87.4 fL (75.5-95.3); PLATELET COUNT (AUTO) 158 K/uL (179-408)
[2021-12-16 05:30] LABS: BILIRUBIN,DIRECT 0.6 mg/dL (0.0-0.2); CREATININE 4.5 mg/dL (0.6-1.3); MAGNESIUM 2.2 mg/dL (1.8-2.4); PHOSPHOROUS 4.7 mg/dL (2.5-4.9); POTASSIUM 3.5 mmol/L (3.5-5.1); TOTAL PROTEIN, SERUM 5.8 g/dL (6.4-8.2)
[2021-12-16] MEDS: LORAZEPAM 2 MG/1 ML VIAL IV PRN (05:52)
[2021-12-16] MEDS: DEXAMETHASONE SOD PHOSPHATE 4 MG INJ IV SCH ×2 (08:02→20:18)
[2021-12-16] MEDS: CHOLECALCIFEROL 1,000 UNIT TABLET PO SCH (08:02)
[2021-12-16] MEDS: PANTOPRAZOLE ORAL SUSPENSION 40 MG SUSPDR.PKT GT SCH ×2 (08:02→20:18)
[2021-12-16] MEDS: THIAMINE HCL 100 MG TABLET GT SCH (08:02)
[2021-12-16] MEDS: ONDANSETRON 4 MG/2 ML VIAL IV PRN (08:40)
[2021-12-16] MEDS: QUETIAPINE FUMARATE 25 MG TABLET NG PRN ×2 (10:16→17:08)
[2021-12-16] MEDS: MORPHINE SULFATE 4 MG/1 ML DISP.SYRIN IV PRN ×3 (12:25→22:03)
[2021-12-16] MEDS: TRAZODONE 50 MG TABLET NG SCH (20:18)
[2021-12-16] MEDS ORDERED: TRAZODONE 100 MG TABLET NG SCH (21:00)
[2021-12-17] VITALS (16 sets, daily range): BP systolic 101–141; BP diastolic 56–83
[2021-12-17] MEDS: QUETIAPINE FUMARATE 25 MG TABLET NG PRN (03:40)
[2021-12-17] MEDS: DEXAMETHASONE SOD PHOSPHATE 4 MG INJ IV SCH ×2 (08:27→21:29)
[2021-12-17] MEDS: ESCITALOPRAM OXALATE 10 MG TABLET NG SCH (08:27)
[2021-12-17] MEDS: THIAMINE HCL 100 MG TABLET GT SCH (08:30)
[2021-12-17] MEDS: CHOLECALCIFEROL 1,000 UNIT TABLET PO SCH (08:31)
[2021-12-17] MEDS: PANTOPRAZOLE SODIUM 40 MG TABLET.DR PO SCH ×2 (08:32→17:40)
[2021-12-17] MEDS: TRAZODONE 50 MG TABLET NG SCH (21:29)
[2021-12-17] MEDS: MORPHINE SULFATE 4 MG/1 ML DISP.SYRIN IV PRN (21:45)
[2021-12-18] VITALS (7 sets, daily range): BP systolic 109–153; BP diastolic 45–95
[2021-12-18] MEDS: QUETIAPINE FUMARATE 25 MG TABLET NG PRN ×2 (01:41→22:14)
[2021-12-18] MEDS: ACETAMINOPHEN 325 MG TABLET PO PRN (02:57)
[2021-12-18 05:29] LABS: PLATELET COUNT (AUTO) 134 K/uL (179-408)
[2021-12-18 05:30] LABS: HEMATOCRIT 21.2 % (31.2-41.9); MEAN CORPUSCULAR HEMOGLOBIN 29.7 uug (24.7-32.8); MEAN CORPUSCULAR VOLUME 87.5 fL (75.5-95.3)
[2021-12-18 05:38] LABS: CREATININE 4.3 mg/dL (0.6-1.3); MAGNESIUM 2.1 mg/dL (1.8-2.4); POTASSIUM 3.9 mmol/L (3.5-5.1); TOTAL PROTEIN, SERUM 5.6 g/dL (6.4-8.2)
[2021-12-18 06:49] LABS: BAND % (MANUAL) 1 % (0-10); LYMPHOCYTES % (MANUAL) 9 % (20-40); METAMYELOCYTES % 1 % (0-1); MONOCYTES % (MANUAL) 6 % (2-10); NEUTROPHILS % (MANUAL) 83 % (42-75)
[2021-12-18] MEDS: PANTOPRAZOLE SODIUM 40 MG TABLET.DR PO SCH ×2 (08:08→16:02)
[2021-12-18] MEDS: THIAMINE HCL 100 MG TABLET GT SCH (08:08)
[2021-12-18] MEDS: ESCITALOPRAM OXALATE 10 MG TABLET NG SCH (08:08)
[2021-12-18] MEDS: DEXAMETHASONE SOD PHOSPHATE 4 MG INJ IV SCH ×2 (08:09→20:51)
[2021-12-18] MEDS: CHOLECALCIFEROL 1,000 UNIT TABLET PO SCH (08:09)
[2021-12-18] MEDS: LOPERAMIDE HCL 2 MG CAPSULE PO PRN ×3 (08:47→22:38)
[2021-12-18] MEDS: MORPHINE SULFATE 4 MG/1 ML DISP.SYRIN IV PRN ×2 (08:47→22:14)
[2021-12-18 12:05] LABS: HEMATOCRIT 21.3 % (31.2-41.9); MEAN CORPUSCULAR HEMOGLOBIN 29.8 uug (24.7-32.8); MEAN CORPUSCULAR VOLUME 88.3 fL (75.5-95.3); PLATELET COUNT (AUTO) 136 K/uL (179-408)
[2021-12-18] MEDS: LORAZEPAM 2 MG/1 ML VIAL IV PRN (16:36)
[2021-12-18] MEDS: TRAZODONE 50 MG TABLET NG SCH (20:51)
[2021-12-18] MEDS ORDERED: LOPERAMIDE HCL 2 MG CAPSULE ONE (22:41)
[2021-12-19] VITALS (8 sets, daily range): BP systolic 122–152; BP diastolic 74–84
[2021-12-19 05:06] LABS: HEMATOCRIT 21.5 % (31.2-41.9); MEAN CORPUSCULAR HEMOGLOBIN 29.9 uug (24.7-32.8); MEAN CORPUSCULAR VOLUME 88.2 fL (75.5-95.3); PLATELET COUNT (AUTO) 115 K/uL (179-408)
[2021-12-19 05:16] LABS: MAGNESIUM 2.3 mg/dL (1.8-2.4); PHOSPHOROUS 5.9 mg/dL (2.5-4.9)
[2021-12-19] MEDS ORDERED: EPOETIN ALFA 10,000 UNITS/ML VIAL IV ONE (06:45)
[2021-12-19] MEDS: PANTOPRAZOLE SODIUM 40 MG TABLET.DR PO SCH ×2 (07:03→20:39)
[2021-12-19] MEDS: LORAZEPAM 2 MG/1 ML VIAL IV PRN (07:37)
[2021-12-19] MEDS: THIAMINE HCL 100 MG TABLET GT SCH (08:01)
[2021-12-19] MEDS: DEXAMETHASONE SOD PHOSPHATE 4 MG INJ IV SCH ×2 (08:01→20:39)
[2021-12-19] MEDS: CHOLECALCIFEROL 1,000 UNIT TABLET PO SCH (08:01)
[2021-12-19] MEDS: ESCITALOPRAM OXALATE 10 MG TABLET NG SCH (08:01)
[2021-12-19] MEDS: QUETIAPINE FUMARATE 25 MG TABLET NG PRN ×2 (11:36→21:12)
[2021-12-19] MEDS: TRAZODONE 50 MG TABLET NG SCH (20:39)
[2021-12-19] MEDS ORDERED: EPOETIN ALFA-EPBX 10,000 UNIT/ML VIAL SQ ONE (20:45)
[2021-12-19] MEDS: MORPHINE SULFATE 4 MG/1 ML DISP.SYRIN IV PRN (20:46)
[2021-12-19] MEDS: LOPERAMIDE HCL 2 MG CAPSULE PO PRN (20:48)
[2021-12-20] VITALS (9 sets, daily range): BP systolic 137–183; BP diastolic 83–122
[2021-12-20] MEDS: MORPHINE SULFATE 4 MG/1 ML DISP.SYRIN IV PRN (00:40)
[2021-12-20] MEDS: LORAZEPAM 2 MG/1 ML VIAL IV PRN (03:06)
[2021-12-20] MEDS: PANTOPRAZOLE SODIUM 40 MG TABLET.DR PO SCH ×2 (06:01→16:57)
[2021-12-20 06:06] LABS: MEAN CORPUSCULAR HEMOGLOBIN 30.4 uug (24.7-32.8); MEAN CORPUSCULAR VOLUME 88.8 fL (75.5-95.3); PLATELET COUNT (AUTO) 106 K/uL (179-408)
[2021-12-20 06:44] LABS: BILIRUBIN,DIRECT 0.4 mg/dL (0.0-0.2); BILIRUBIN,TOTAL 0.7 mg/dL (0.2-1.0); MAGNESIUM 2.4 mg/dL (1.8-2.4); POTASSIUM 4.2 mmol/L (3.5-5.1); TOTAL PROTEIN, SERUM 5.6 g/dL (6.4-8.2)
[2021-12-20 07:08] LABS: HEMATOCRIT 20.6 % (31.2-41.9)
[2021-12-20 07:22] LABS: PHOSPHOROUS 6.3 mg/dL (2.5-4.9)
[2021-12-20] MEDS: THIAMINE HCL 100 MG TABLET GT SCH (08:42)
[2021-12-20] MEDS: ESCITALOPRAM OXALATE 10 MG TABLET NG SCH (08:42)
[2021-12-20] MEDS: CHOLECALCIFEROL 1,000 UNIT TABLET PO SCH (08:42)
[2021-12-20] MEDS: FOLIC ACID/VITAMIN B COMP W-C TABLET PO SCH (08:42)
[2021-12-20] MEDS: DEXAMETHASONE SOD PHOSPHATE 4 MG INJ IV SCH (08:43)
[2021-12-20] MEDS: QUETIAPINE FUMARATE 25 MG TABLET NG PRN ×2 (08:52→16:57)
[2021-12-20] MEDS: LOPERAMIDE HCL 2 MG CAPSULE PO PRN ×2 (08:53→14:40)
[2021-12-20] MEDS: NEPRO (VANILLA) 237 ML CAN PO SCH (16:57)
[2021-12-20 18:17] LABS: *BILIRUBIN,URIN NEGATIVE (NEGATIVE); *BLOOD, URINE 1+ (NEGATIVE); *COLOR,URINE YELLOW (YELLOW); *KETONES,URINE NEGATIVE (NEGATIVE); *UROBILINOGEN,URINE 0.2 E.U./dl (NORMAL); LEUKOCYTE ESTERASE ,URINE 1+ (NEGATIVE); NITRITE, URINE NEGATIVE (NEGATIVE); UGLUCOSE NEGATIVE (NEGATIVE)
[2021-12-20 18:25] LABS: *CLARITY,URINE CLOUDY (CLEAR); BACTERIA,URINE FEW /HPF (NONE SEEN); SQUAMOUS EPITHELIAL CELL,UR MODERATE /HPF (NONE SEEN); YEAST,URINE MANY /HPF (NONE SEEN)
[2021-12-20 23:06] LABS: CARBOHYDRATE ANTIGEN, 19-9 152 U/mL (0-35)
[2021-12-21 00:23] VITALS: BP 161/106
[2021-12-21] MEDS: TRAZODONE 50 MG TABLET NG SCH ×2 (00:51→20:18)
[2021-12-21] MEDS: HEPARIN SODIUM,PORCINE 5,000 UNITS/ML VIAL SQ SCH ×2 (00:51→09:00)
[2021-12-21] MEDS: MORPHINE SULFATE 4 MG/1 ML DISP.SYRIN IV PRN ×4 (02:19→20:18)
[2021-12-21] MEDS: LOPERAMIDE HCL 2 MG CAPSULE PO PRN (02:58)
[2021-12-21] MEDS: ACETAMINOPHEN 325 MG TABLET PO PRN (03:13)
[2021-12-21] MEDS: LORAZEPAM 2 MG/1 ML VIAL IV PRN ×2 (04:32→04:33)
[2021-12-21 04:40] VITALS: BP 124/68
[2021-12-21] MEDS: PANTOPRAZOLE SODIUM 40 MG TABLET.DR PO SCH ×2 (06:07→17:39)
[2021-12-21 07:15] LABS: MEAN CORPUSCULAR HEMOGLOBIN 30.4 uug (24.7-32.8); MEAN CORPUSCULAR VOLUME 88.1 fL (75.5-95.3); PLATELET COUNT (AUTO) 91 K/uL (179-408)
[2021-12-21 07:23] LABS: CREATININE 4.5 mg/dL (0.6-1.3); PHOSPHOROUS 3.2 mg/dL (2.5-4.9); POTASSIUM 3.8 mmol/L (3.5-5.1)
[2021-12-21 07:44] LABS: HEMATOCRIT 19.8 % (31.2-41.9)
[2021-12-21] MEDS: THIAMINE HCL 100 MG TABLET GT SCH (08:51)
[2021-12-21] MEDS: CHOLECALCIFEROL 1,000 UNIT TABLET PO SCH (08:51)
[2021-12-21] MEDS: FOLIC ACID/VITAMIN B COMP W-C TABLET PO SCH (08:51)
[2021-12-21] MEDS: ESCITALOPRAM OXALATE 10 MG TABLET NG SCH (08:51)
[2021-12-21] MEDS ORDERED: diphenhydrAMINE 50 MG/1 ML VIAL IV PRN (09:00)
[2021-12-21] MEDS ORDERED: DEXAMETHASONE SOD PHOSPHATE 4 MG INJ IV SCH (09:00)
[2021-12-21] MEDS ORDERED: ACETAMINOPHEN 325 MG TABLET PO PRN (09:00)
[2021-12-21] MEDS: NEPRO (VANILLA) 237 ML CAN PO SCH ×2 (09:07→17:39)
[2021-12-21 10:07] LABS: COMPLEMENT, C3 SERUM 87 mg/dL (82-167); COMPLEMENT, C4 SERUM 8 mg/dL (12-38)
[2021-12-21 11:40] VITALS: BP 166/106
[2021-12-21] MEDS: ONDANSETRON 4 MG/2 ML VIAL IV PRN ×2 (15:47→20:20)
[2021-12-21 15:58] VITALS: BP 104/68
[2021-12-21 18:04] LABS: *OCCULT BLOOD STOOL NEGATIVE (NEGATIVE)
[2021-12-21 20:09] VITALS: BP 140/92
[2021-12-22] VITALS (12 sets, daily range): BP systolic 115–143; BP diastolic 78–96
[2021-12-22] MEDS: ONDANSETRON 4 MG/2 ML VIAL IV PRN ×3 (01:52→16:40)
[2021-12-22] MEDS: MORPHINE SULFATE 4 MG/1 ML DISP.SYRIN IV PRN ×3 (04:10→15:46)
[2021-12-22] MEDS ORDERED: CLINDAMYCIN PHOSPHATE 600 MG/4 ML VIAL ONE (05:41)
[2021-12-22] MEDS: PANTOPRAZOLE SODIUM 40 MG TABLET.DR PO SCH ×2 (06:12→16:39)
[2021-12-22] MEDS ORDERED: LIDOCAINE HCL 1% 20 ML VIAL ONE (06:26)
[2021-12-22] MEDS ORDERED: HEPARIN SODIUM,PORCINE 1,000 UNITS/ML VIAL ONE (06:26)
[2021-12-22] MEDS ORDERED: IOHEXOL 300MG/ML 50 ML VIAL ONE (06:27)
[2021-12-22] MEDS ORDERED: HEPARIN/NS 500 ML ONE (06:27)
[2021-12-22] MEDS ORDERED: LIDOCAINE-MPF 2% 5 ML VIAL IJ ONE (07:45)
[2021-12-22] MEDS ORDERED: DEXAMETHASONE SOD PHOSPHATE 4 MG INJ IV ONE (07:45)
[2021-12-22] MEDS ORDERED: PROPOFOL 200 MG/20 ML BOTTLE IV ONE (07:45)
[2021-12-22] MEDS ORDERED: FENTANYL CITRATE 100 MCG/2 ML AMPUL ONE (08:04)
[2021-12-22] MEDS: HEPARIN SODIUM,PORCINE 5,000 UNITS/ML VIAL SQ SCH (09:00)
[2021-12-22] MEDS: NEPRO (VANILLA) 237 ML CAN PO SCH ×3 (09:00→17:05)
[2021-12-22] MEDS: CHOLECALCIFEROL 1,000 UNIT TABLET PO SCH (09:22)
[2021-12-22] MEDS: FOLIC ACID/VITAMIN B COMP W-C TABLET PO SCH (09:22)
[2021-12-22] MEDS: THIAMINE HCL 100 MG TABLET GT SCH (09:22)
[2021-12-22] MEDS: CITALOPRAM 10 MG TABLET PO SCH (09:22)
[2021-12-22] MEDS: LOPERAMIDE HCL 2 MG CAPSULE PO PRN (09:40)
[2021-12-22 10:43] LABS: HEMATOCRIT 23.4 % (31.2-41.9); MEAN CORPUSCULAR HEMOGLOBIN 29.4 uug (24.7-32.8); MEAN CORPUSCULAR VOLUME 85.5 fL (75.5-95.3); PLATELET COUNT (AUTO) 78 K/uL (179-408)
[2021-12-22 10:49] LABS: CREATININE 6.3 mg/dL (0.6-1.3); MAGNESIUM 1.8 mg/dL (1.8-2.4); PHOSPHOROUS 5.5 mg/dL (2.5-4.9); POTASSIUM 4.6 mmol/L (3.5-5.1)
[2021-12-22] MEDS ORDERED: FLUCONAZOLE 200 MG/NS 100ML IV 200 MG in PREMIXED 1 EACH IV SCH (12:00)
[2021-12-22] MEDS ORDERED: CLINDAMYCIN PHOSPHATE IV 600 MG in IV DEXTROSE 5% 100 ML IV SCH ×2 (12:30→13:30)
[2021-12-22] MEDS: ACETAMINOPHEN 325 MG TABLET PO PRN ×2 (16:40→20:13)
[2021-12-22] MEDS: LORAZEPAM 2 MG/1 ML VIAL IV PRN (16:46)
[2021-12-22] MEDS: TRAZODONE 50 MG TABLET NG SCH (20:13)
[2021-12-23] VITALS: BP 127/85
[2021-12-23] MEDS: ONDANSETRON 4 MG/2 ML VIAL IV PRN ×4 (02:03→17:31)
[2021-12-23] MEDS: LORAZEPAM 2 MG/1 ML VIAL IV PRN ×4 (02:03→22:06)
[2021-12-23 04:00] VITALS: BP 128/79
[2021-12-23] MEDS: PANTOPRAZOLE SODIUM 40 MG TABLET.DR PO SCH ×2 (06:22→17:31)
[2021-12-23 07:05] LABS: CREATININE 4.6 mg/dL (0.6-1.3); PHOSPHOROUS 4.7 mg/dL (2.5-4.9); POTASSIUM 3.8 mmol/L (3.5-5.1)
[2021-12-23] MEDS: FOLIC ACID/VITAMIN B COMP W-C TABLET PO SCH (08:07)
[2021-12-23] MEDS: CITALOPRAM 10 MG TABLET PO SCH (08:07)
[2021-12-23] MEDS: THIAMINE HCL 100 MG TABLET GT SCH (08:07)
[2021-12-23] MEDS: CHOLECALCIFEROL 1,000 UNIT TABLET PO SCH (08:07)
[2021-12-23] MEDS: LOPERAMIDE HCL 2 MG CAPSULE PO PRN (08:07)
[2021-12-23] MEDS: MORPHINE SULFATE 4 MG/1 ML DISP.SYRIN IV PRN ×3 (08:08→20:45)
[2021-12-23] MEDS: NEPRO (VANILLA) 237 ML CAN PO SCH ×3 (08:15→17:36)
[2021-12-23 08:41] LABS: HEMATOCRIT 23.5 % (31.2-41.9); MEAN CORPUSCULAR HEMOGLOBIN 28.8 uug (24.7-32.8); MEAN CORPUSCULAR VOLUME 86.3 fL (75.5-95.3); PLATELET COUNT (AUTO) 63 K/uL (179-408)
[2021-12-23] MEDS: HEPARIN SODIUM,PORCINE 5,000 UNITS/ML VIAL SQ SCH (09:16)
[2021-12-23] MEDS ORDERED: POLYVINYL ALCOHOL OPHT DROPS 15 ML BOTTLE EACHEYE PRN (11:00)
[2021-12-23 11:02] VITALS: BP 136/99
[2021-12-23 13:23] LABS: NEUTROPHILS % (MANUAL) 0 % (42-75)
[2021-12-23] MEDS: diphenhydrAMINE 25 MG CAP PO PRN ×2 (13:59→20:45)
[2021-12-23 15:09] VITALS: BP 130/82
[2021-12-23 18:22] LABS: *BILIRUBIN,URIN NEGATIVE (NEGATIVE); *BLOOD, URINE 1+ (NEGATIVE); *CLARITY,URINE CLEAR (CLEAR); *COLOR,URINE YELLOW (YELLOW); *KETONES,URINE NEGATIVE (NEGATIVE); *UROBILINOGEN,URINE 0.2 E.U./dl (NORMAL); LEUKOCYTE ESTERASE ,URINE 1+ (NEGATIVE); NITRITE, URINE NEGATIVE (NEGATIVE); PH,URINE 7.5 (5.0-8.0); UGLUCOSE NEGATIVE (NEGATIVE)
[2021-12-23 20:26] VITALS: BP 126/87
[2021-12-23] MEDS: TRAZODONE 50 MG TABLET NG SCH (20:45)
[2021-12-24 00:23] VITALS: BP 121/85
[2021-12-24 02:27] LABS: BACTERIA,URINE 5 /HPF (NONE SEEN); SQUAMOUS EPITHELIAL CELL,UR NONE SEEN /HPF (NONE SEEN); YEAST,URINE FEW /HPF (NONE SEEN)
[2021-12-24] MEDS: MORPHINE SULFATE 4 MG/1 ML DISP.SYRIN IV PRN ×4 (03:17→20:48)
[2021-12-24] MEDS: ONDANSETRON 4 MG/2 ML VIAL IV PRN ×3 (03:25→21:00)
[2021-12-24 04:38] VITALS: BP 163/94
[2021-12-24] MEDS: PANTOPRAZOLE SODIUM 40 MG TABLET.DR PO SCH ×2 (06:21→17:06)
[2021-12-24] MEDS: LORAZEPAM 2 MG/1 ML VIAL IV PRN ×2 (06:21→23:59)
[2021-12-24] MEDS: diphenhydrAMINE 25 MG CAP PO PRN (06:21)
[2021-12-24 06:57] LABS: HEMATOCRIT 22.4 % (31.2-41.9); MEAN CORPUSCULAR HEMOGLOBIN 29.4 uug (24.7-32.8); MEAN CORPUSCULAR VOLUME 85.7 fL (75.5-95.3); PLATELET COUNT (AUTO) 64 K/uL (179-408)
[2021-12-24 07:31] LABS: CREATININE 5.9 mg/dL (0.6-1.3); MAGNESIUM 1.8 mg/dL (1.8-2.4); PHOSPHOROUS 5.6 mg/dL (2.5-4.9); POTASSIUM 4.2 mmol/L (3.5-5.1)
[2021-12-24] MEDS: HEPARIN SODIUM,PORCINE 5,000 UNITS/ML VIAL SQ SCH (09:00)
[2021-12-24] MEDS: THIAMINE HCL 100 MG TABLET GT SCH (09:29)
[2021-12-24] MEDS: CITALOPRAM 10 MG TABLET PO SCH (09:29)
[2021-12-24] MEDS: CHOLECALCIFEROL 1,000 UNIT TABLET PO SCH (09:29)
[2021-12-24] MEDS: FLUCONAZOLE 200 MG TABLET PO SCH (09:29)
[2021-12-24] MEDS: CEphaleXIN 500 MG CAPSULE PO SCH ×2 (09:29→20:47)
[2021-12-24] MEDS: FOLIC ACID/VITAMIN B COMP W-C TABLET PO SCH (09:29)
[2021-12-24] MEDS: NEPRO (VANILLA) 237 ML CAN PO SCH ×3 (09:30→17:07)
[2021-12-24 11:58] VITALS: BP 153/85
[2021-12-24 14:01] LABS: BAND % (MANUAL) 1 % (0-10); EOSINOPHILS % (MANUAL) 1 % (0-8); LYMPHOCYTES % (MANUAL) 15 % (20-40); MONOCYTES % (MANUAL) 7 % (2-10); NEUTROPHILS % (MANUAL) 76 % (42-75)
[2021-12-24 16:02] VITALS: BP 126/48
[2021-12-24 20:00] VITALS: BP 115/82
[2021-12-24] MEDS: TRAZODONE 50 MG TABLET NG SCH (20:47)
[2021-12-24] MEDS: QUETIAPINE FUMARATE 25 MG TABLET NG PRN (20:48)
[2021-12-24] MEDS: LOPERAMIDE HCL 2 MG CAPSULE PO PRN (21:01)
[2021-12-25] VITALS (7 sets, daily range): BP systolic 83–144; BP diastolic 44–93
[2021-12-25] MEDS: PANTOPRAZOLE SODIUM 40 MG TABLET.DR PO SCH ×2 (06:29→16:26)
[2021-12-25] MEDS: FOLIC ACID/VITAMIN B COMP W-C TABLET PO SCH (08:41)
[2021-12-25] MEDS: CEphaleXIN 500 MG CAPSULE PO SCH ×2 (08:41→20:47)
[2021-12-25] MEDS: FLUCONAZOLE 200 MG TABLET PO SCH (08:42)
[2021-12-25] MEDS: THIAMINE HCL 100 MG TABLET GT SCH (08:42)
[2021-12-25] MEDS: CHOLECALCIFEROL 1,000 UNIT TABLET PO SCH (08:42)
[2021-12-25] MEDS: NEPRO (VANILLA) 237 ML CAN PO SCH ×3 (08:42→16:07)
[2021-12-25] MEDS: CITALOPRAM 10 MG TABLET PO SCH (08:42)
[2021-12-25] MEDS: diphenhydrAMINE 25 MG CAP PO PRN ×4 (08:43→20:58)
[2021-12-25 08:45] LABS: HEMATOCRIT 24.5 % (31.2-41.9); MEAN CORPUSCULAR HEMOGLOBIN 29.1 uug (24.7-32.8); PLATELET COUNT (AUTO) 65 K/uL (179-408)
[2021-12-25 08:53] LABS: CREATININE 4.2 mg/dL (0.6-1.3); MAGNESIUM 1.9 mg/dL (1.8-2.4); POTASSIUM 4.4 mmol/L (3.5-5.1)
[2021-12-25] MEDS: LORAZEPAM 2 MG/1 ML VIAL IV PRN (08:59)
[2021-12-25] MEDS: HEPARIN SODIUM,PORCINE 5,000 UNITS/ML VIAL SQ SCH (09:00)
[2021-12-25] MEDS: ONDANSETRON 4 MG/2 ML VIAL IV PRN ×2 (14:53→20:47)
[2021-12-25] MEDS: MORPHINE SULFATE 4 MG/1 ML DISP.SYRIN IV PRN (14:53)
[2021-12-25] MEDS: LOPERAMIDE HCL 2 MG CAPSULE PO PRN (20:47)
[2021-12-25] MEDS: TRAZODONE 50 MG TABLET NG SCH (20:47)
[2021-12-26] VITALS: BP 142/93
[2021-12-26] MEDS: MORPHINE SULFATE 4 MG/1 ML DISP.SYRIN IV PRN ×3 (00:52→14:56)
[2021-12-26] MEDS: LORAZEPAM 2 MG/1 ML VIAL IV PRN ×3 (01:51→20:49)
[2021-12-26] MEDS: PANTOPRAZOLE SODIUM 40 MG TABLET.DR PO SCH ×2 (06:22→16:47)
[2021-12-26] MEDS: CHOLECALCIFEROL 1,000 UNIT TABLET PO SCH (08:39)
[2021-12-26] MEDS: CEphaleXIN 500 MG CAPSULE PO SCH ×2 (08:39→20:49)
[2021-12-26] MEDS: CITALOPRAM 10 MG TABLET PO SCH (08:39)
[2021-12-26] MEDS: FOLIC ACID/VITAMIN B COMP W-C TABLET PO SCH (08:39)
[2021-12-26] MEDS: THIAMINE HCL 100 MG TABLET GT SCH (08:39)
[2021-12-26] MEDS: NEPRO (VANILLA) 237 ML CAN PO SCH ×3 (08:40→16:48)
[2021-12-26] MEDS: ONDANSETRON 4 MG/2 ML VIAL IV PRN ×2 (08:41→20:49)
[2021-12-26 08:50] LABS: HEMATOCRIT 25.1 % (31.2-41.9); MEAN CORPUSCULAR HEMOGLOBIN 29.1 uug (24.7-32.8); MEAN CORPUSCULAR VOLUME 85.8 fL (75.5-95.3); PLATELET COUNT (AUTO) 71 K/uL (179-408)
[2021-12-26] MEDS: FLUCONAZOLE 200 MG TABLET PO SCH (08:50)
[2021-12-26 08:58] LABS: MAGNESIUM 1.6 mg/dL (1.8-2.4); PHOSPHOROUS 5.1 mg/dL (2.5-4.9); POTASSIUM 4.5 mmol/L (3.5-5.1)
[2021-12-26] MEDS: HEPARIN SODIUM,PORCINE 5,000 UNITS/ML VIAL SQ SCH (09:00)
[2021-12-26 11:32] VITALS: BP 119/77
[2021-12-26] MEDS: MAGNESIUM SULFATE/D5W 100 ML IV SCH ×2 (12:45→14:57)
[2021-12-26] MEDS: ACETAMINOPHEN 325 MG TABLET PO PRN (14:56)
[2021-12-26] MEDS: SHARK LIVER OIL/PETROLAT OINT 60 GM TUBE RC SCH ×2 (15:12→21:03)
[2021-12-26 15:23] VITALS: BP 120/87
[2021-12-26] MEDS: diphenhydrAMINE 50 MG/1 ML VIAL IV PRN (16:47)
[2021-12-26 20:00] VITALS: BP_SYST 103; BP_SYST 126; BP_DIAS 46; BP_DIAS 89
[2021-12-26] MEDS ORDERED: [UNRECOGNIZED DRUG - OTHER] PO (20:09)
[2021-12-26] MEDS: TRAZODONE 50 MG TABLET NG SCH (20:49)
[2021-12-27] MEDS: MORPHINE SULFATE 4 MG/1 ML DISP.SYRIN IV PRN ×5 (00:34→22:02)
[2021-12-27] MEDS: ONDANSETRON 4 MG/2 ML VIAL IV PRN ×4 (00:34→21:20)
[2021-12-27] MEDS ORDERED: DOCU-141 PO (03:48)
[2021-12-27] MEDS ORDERED: ONDA-104 PO (03:49)
[2021-12-27 04:00] VITALS: BP 102/69
[2021-12-27] MEDS: LORAZEPAM 2 MG/1 ML VIAL IV PRN ×2 (04:04→09:00)
[2021-12-27] MEDS: diphenhydrAMINE 50 MG/1 ML VIAL IV PRN ×2 (04:04→16:43)
[2021-12-27] MEDS: PANTOPRAZOLE SODIUM 40 MG TABLET.DR PO SCH ×2 (06:20→16:42)
[2021-12-27 06:49] LABS: HEMATOCRIT 22.5 % (31.2-41.9); MEAN CORPUSCULAR HEMOGLOBIN 28.8 uug (24.7-32.8); MEAN CORPUSCULAR VOLUME 85.3 fL (75.5-95.3); PLATELET COUNT (AUTO) 70 K/uL (179-408)
[2021-12-27 07:18] LABS: CREATININE 5.3 mg/dL (0.6-1.3); MAGNESIUM 2.3 mg/dL (1.8-2.4); POTASSIUM 4.5 mmol/L (3.5-5.1)
[2021-12-27] MEDS: HEPARIN SODIUM,PORCINE 5,000 UNITS/ML VIAL SQ SCH (08:17)
[2021-12-27] MEDS: FLUCONAZOLE 200 MG TABLET PO SCH (08:22)
[2021-12-27] MEDS: CHOLECALCIFEROL 1,000 UNIT TABLET PO SCH (08:22)
[2021-12-27] MEDS: FOLIC ACID/VITAMIN B COMP W-C TABLET PO SCH (08:23)
[2021-12-27] MEDS: SHARK LIVER OIL/PETROLAT OINT 60 GM TUBE RC SCH ×4 (08:23→20:27)
[2021-12-27] MEDS: CEphaleXIN 500 MG CAPSULE PO SCH ×2 (08:23→20:27)
[2021-12-27] MEDS: CITALOPRAM 10 MG TABLET PO SCH (08:23)
[2021-12-27] MEDS: THIAMINE HCL 100 MG TABLET GT SCH (08:23)
[2021-12-27] MEDS: NEPRO (VANILLA) 237 ML CAN PO SCH ×3 (08:23→16:42)
[2021-12-27 08:52] LABS: BILIRUBIN,DIRECT 0.3 mg/dL (0.0-0.2); BILIRUBIN,TOTAL 0.7 mg/dL (0.2-1.0); TOTAL PROTEIN, SERUM 6.6 g/dL (6.4-8.2)
[2021-12-27] MEDS: diphenhydrAMINE 25 MG CAP PO PRN (08:59)
[2021-12-27 11:53] VITALS: BP 119/67
[2021-12-27] MEDS ORDERED: LIDOCAINE HCL 1% 20 ML VIAL ONE (13:03)
[2021-12-27] MEDS ORDERED: FENTANYL CITRATE 100 MCG/2 ML AMPUL IV PRN (15:00)
[2021-12-27] MEDS ORDERED: MIDAZOLAM HCL 2 MG/2 ML VIAL IV PRN (15:00)
[2021-12-27] MEDS ORDERED: FLUMAZENIL 0.5 MG/5 ML VIAL IVP PRN (15:00)
[2021-12-27] MEDS ORDERED: NALOXONE HCL 0.4 MG/ML AMPUL IV PRN (15:00)
[2021-12-27] MEDS ORDERED: FENTANYL CITRATE 100 MCG/2 ML AMPUL IV ONE (16:32)
[2021-12-27] MEDS ORDERED: MIDAZOLAM HCL 2 MG/2 ML VIAL IV ONE (16:32)
[2021-12-27] MEDS: NUTRISOURCE FIBER 4 GM PACKET PO SCH (16:42)
[2021-12-27 16:47] VITALS: BP 100/61
[2021-12-27 20:00] VITALS: BP 122/78
[2021-12-27] MEDS ORDERED: EPOETIN ALFA-EPBX 10,000 UNIT/ML VIAL SQ ONE (20:00)
[2021-12-27 20:15] LABS: HEMATOCRIT 21.9 % (31.2-41.9)
[2021-12-27] MEDS: TRAZODONE 50 MG TABLET NG SCH (20:26)
[2021-12-27] MEDS: LOPERAMIDE HCL 2 MG CAPSULE PO PRN (21:19)
[2021-12-28] MEDS: diphenhydrAMINE 50 MG/1 ML VIAL IV PRN ×2 (00:47→09:49)
[2021-12-28] MEDS: LORAZEPAM 2 MG/1 ML VIAL IV PRN ×2 (01:58→12:40)
[2021-12-28 04:00] VITALS: BP 118/73
[2021-12-28] MEDS: MORPHINE SULFATE 4 MG/1 ML DISP.SYRIN IV PRN ×2 (05:43→10:17)
[2021-12-28] MEDS: PANTOPRAZOLE SODIUM 40 MG TABLET.DR PO SCH (06:06)
[2021-12-28] MEDS: ONDANSETRON 4 MG/2 ML VIAL IV PRN ×2 (06:10→11:13)
[2021-12-28 06:32] LABS: HEMATOCRIT 22.3 % (31.2-41.9); MEAN CORPUSCULAR HEMOGLOBIN 29.2 uug (24.7-32.8); MEAN CORPUSCULAR VOLUME 84.8 fL (75.5-95.3); PLATELET COUNT (AUTO) 90 K/uL (179-408)
[2021-12-28 06:48] LABS: CREATININE 3.7 mg/dL (0.6-1.3); PHOSPHOROUS 5.6 mg/dL (2.5-4.9); POTASSIUM 4.8 mmol/L (3.5-5.1)
[2021-12-28 06:55] LABS: NEUTROPHILS % (MANUAL) 0 % (42-75)
[2021-12-28] MEDS: FLUCONAZOLE 200 MG TABLET PO SCH (09:49)
[2021-12-28] MEDS: CEphaleXIN 500 MG CAPSULE PO SCH (09:50)
[2021-12-28] MEDS: FOLIC ACID/VITAMIN B COMP W-C TABLET PO SCH (09:50)
[2021-12-28] MEDS: CITALOPRAM 10 MG TABLET PO SCH (09:50)
[2021-12-28] MEDS: NEPRO (VANILLA) 237 ML CAN PO SCH (09:50)
[2021-12-28] MEDS: THIAMINE HCL 100 MG TABLET GT SCH (09:50)
[2021-12-28] MEDS: CHOLECALCIFEROL 1,000 UNIT TABLET PO SCH (09:50)
[2021-12-28] MEDS: SHARK LIVER OIL/PETROLAT OINT 60 GM TUBE RC SCH (09:51)
[2021-12-28] MEDS: HEPARIN SODIUM,PORCINE 5,000 UNITS/ML VIAL SQ SCH (09:52)
[2021-12-28] MEDS: NUTRISOURCE FIBER 4 GM PACKET PO SCH (09:58)
[2021-12-28] MEDS ORDERED: Wheat Dextrin PO (11:40)
[2021-12-28] MEDS ORDERED: TRAZ-252 NG (11:40)
[2021-12-28] MEDS ORDERED: CITA10TA9 PO (11:40)
[2021-12-28] MEDS ORDERED: VANC500V PO (11:40)
[2021-12-28] MEDS ORDERED: FOLI0.8T2 PO (11:40)
[2021-12-28] MEDS ORDERED: Nepro PO (11:40)
[2021-12-28] MEDS ORDERED: PANT40TA2 PO (11:40)
[2021-12-28] MEDS ORDERED: ACET325T53 PO (11:40)
[2021-12-28] MEDS ORDERED: ALBU8HFA4 IH (11:40)
[2021-12-28 12:00] VITALS: BP 81/102
[2021-12-28] MEDS ORDERED: VANCOMYCIN FOR PO/GT/NG USE PO SCH (12:00)
== END 2021-12-28 13:00 | DRG 870 ==
LOC: ER 14:44 → TELE3 21:20 → CCU 12-07 16:43 → TELE3 12-20 20:30 → MEDSURG3 12-26 10:54
PROVIDERS: ADMIT Internal Medicine; ATTEND Internal Medicine
PROC: 05H533Z Insertion of Infusion Device into Right Subclavian Vein, Percutaneous Approach (ICD-10-PCS; principal; 2021-12-05)
PROC: B546ZZA Ultrasonography of Right Subclavian Vein, Guidance (ICD-10-PCS; 2021-12-05)
PROC: 06HY33Z Insertion of Infusion Device into Lower Vein, Percutaneous Approach (ICD-10-PCS; 2021-12-07)
PROC: 5A1955Z Respiratory Ventilation, Greater than 96 Consecutive Hours (ICD-10-PCS; 2021-12-08)
PROC: 0BH17EZ Insertion of Endotracheal Airway into Trachea, Via Natural or Artificial Opening (ICD-10-PCS; 2021-12-08)
PROC: 5A1D70Z Performance of Urinary Filtration, Intermittent, Less than 6 Hours Per Day (ICD-10-PCS; 2021-12-08)
PROC: 02HV33Z Insertion of Infusion Device into Superior Vena Cava, Percutaneous Approach (ICD-10-PCS; 2021-12-08)
PROC: B548ZZA Ultrasonography of Superior Vena Cava, Guidance (ICD-10-PCS; 2021-12-08)
PROC: 0JH63XZ Insertion of Tunneled Vascular Access Device into Chest Subcutaneous Tissue and Fascia, Percutaneous Approach (ICD-10-PCS; 2021-12-22)
PROC: 02HV33Z Insertion of Infusion Device into Superior Vena Cava, Percutaneous Approach (ICD-10-PCS; 2021-12-22)
PROC: B518YZA Fluoroscopy of Superior Vena Cava using Other Contrast, Guidance (ICD-10-PCS; 2021-12-22)
PROC: 0TB13ZX Excision of Left Kidney, Percutaneous Approach, Diagnostic (ICD-10-PCS; 2021-12-27)
DX: A41.89 Other specified sepsis (principal); U07.1 COVID-19; J12.82 Pneumonia due to coronavirus disease 2019; N17.0 Acute kidney failure with tubular necrosis; G92.8 Other toxic encephalopathy; K85.90 Acute pancreatitis without necrosis or infection, unspecified; J96.01 Acute respiratory failure with hypoxia; K72.00 Acute and subacute hepatic failure without coma; C95.90 Leukemia, unspecified not having achieved remission; B37.49 Other urogenital candidiasis; D61.818 Other pancytopenia; D68.59 Other primary thrombophilia; E87.1 Hypo-osmolality and hyponatremia; E87.2 Acidosis; D68.8 Other specified coagulation defects; R65.20 Severe sepsis without septic shock; Z85.42 Personal history of malignant neoplasm of other parts of uterus; E03.9 Hypothyroidism, unspecified; E83.51 Hypocalcemia; F32.9 Major depressive disorder, single episode, unspecified; Z92.21 Personal history of antineoplastic chemotherapy; F41.9 Anxiety disorder, unspecified; D69.6 Thrombocytopenia, unspecified; N80.0 Endometriosis of uterus; R74.01 Elevation of levels of liver transaminase levels; Z74.09 Other reduced mobility; R73.9 Hyperglycemia, unspecified; E87.6 Hypokalemia; E80.6 Other disorders of bilirubin metabolism; E87.5 Hyperkalemia; F39 Unspecified mood [affective] disorder; F10.10 Alcohol abuse, uncomplicated; F55.8 Abuse of other non-psychoactive substances; G89.29 Other chronic pain
CPT/HCPCS: 36415; 36600; 70030-TC; 70450; 71045; 72170; 74150; 76705; 76770; 78445; 82747; 82784; 83520; 83550; 83605; 83615; 83690; 83735; 84100; 84155; 84165; 84443; 84703; 85014; 85018; 85025; 85610; 85651; 85730; 86038; 86140; 86160; 86235; 86256; 86301; 86334; 86430; 86480; 86625; 86705; 86706; 86709; 86803; 86850; 86870; 86900; 86901; 86920; 87040; 87046; 87070; 87086; 87177; 87340; 87536; 87806; 88333-TC; 89055; 90937; 93307; 94002; 94003; 97161; A4217; A4649; A4663; A9150; A9537; C9113; G0378; G0480; J0330; J0360; J0696; J0885; J1100; J1200; J1450; J1630; J1644; J1650; J1956; J2060; J2185; J2250; J2270; J2358; J2405; J2765; J3010; J3370; J3411; J3475; J3480; J3490; J3535; J7030; J7040; J7050; J7060; J7070; J8499; P9016; Q0163; Q9967

== ENCOUNTER 2022-05-12 16:43 | Inpatient (IN) | payer BC, OTHER ==
[~2022-05-12] VITALS: Ht 172.7 cm; Wt 54.4 kg
[~2022-05-12 16:43] MED LIST changes: +ACET325T53 PO; +ALBU8HFA4 IH; +CITA10TA9 PO; -ESCI5TAB PO; +FOLI0.8T2 PO; -HYDR-3972 PO; -MINO2.5T PO; +Nepro PO; +PANT40TA2 PO; -PRED20TA PO; -PROG100C15 PO; -TAMS-3 PO; +TRAZ-252 NG; +VANC500V PO; +Wheat Dextrin PO; -testosterone
[2022-05-12] MEDS ORDERED: LINA145C PO (17:27)
[2022-05-12] MEDS ORDERED: LORA2VIA33 IJ (17:27)
[2022-05-12] MEDS ORDERED: PREG150C46 PO (17:27)
[2022-05-12] MEDS ORDERED: LACT10SO3 PO (17:27)
[2022-05-12] MEDS ORDERED: ONDA4TAB5 PO (17:27)
[2022-05-12] MEDS ORDERED: FLUT1DIS27 INH (17:27)
[2022-05-12] MEDS ORDERED: HYDR-4209 PO (17:27)
[2022-05-12 17:42] LABS: HEMATOCRIT 32.6 % (31.2-41.9); MEAN CORPUSCULAR HEMOGLOBIN 29.4 uug (24.7-32.8); MEAN CORPUSCULAR VOLUME 85.7 fL (75.5-95.3); PLATELET COUNT (AUTO) 251 K/uL (179-408)
[2022-05-12 17:49] LABS: CARBON DIOXIDE 29 mmol/L (21-32); CHLORIDE 104 mmol/L (98-107); CREATININE 0.6 mg/dL (0.6-1.3); GLUCOSE 92 mg/dL (74-106); POTASSIUM 3.8 mmol/L (3.5-5.1); UREA NITROGEN, BLOOD 8 mg/dL (7-18)
[2022-05-12 17:54] LABS: *BILIRUBIN,URIN NEGATIVE (NEGATIVE); *CLARITY,URINE CLEAR (CLEAR); *COLOR,URINE YELLOW (YELLOW); *KETONES,URINE NEGATIVE (NEGATIVE); *UROBILINOGEN,URINE 0.2 E.U./dl (NORMAL); LEUKOCYTE ESTERASE ,URINE NEGATIVE (NEGATIVE); NITRITE, URINE NEGATIVE (NEGATIVE); UGLUCOSE NEGATIVE (NEGATIVE)
[2022-05-12 17:56] LABS: *BLOOD, URINE TRACE (NEGATIVE)
[2022-05-12 17:58] LABS: ALANINE AMINOTRANSFERASE 29 U/L (14-59); ALKALINE PHOSPHATASE 49 U/L (50-136); ASPARTATE AMINOTRANSFERASE 19 U/L (15-37); BILIRUBIN,DIRECT 0.1 mg/dL (0.0-0.2); BILIRUBIN,TOTAL 0.2 mg/dL (0.2-1.0); LIPASE 64 U/L (73-393); TOTAL PROTEIN, SERUM 6.9 g/dL (6.4-8.2)
[2022-05-12] MEDS ORDERED: OXYC5CAP18 PO (18:00)
[2022-05-12] MEDS ORDERED: ZOLP10TA2 PO (18:00)
[2022-05-12 18:16] LABS: BACTERIA,URINE NONE SEEN /HPF (NONE SEEN); RBC,URINE 0-3 /HPF (0-3); SQUAMOUS EPITHELIAL CELL,UR FEW /HPF (NONE SEEN); WBC,URINE 0-3 /HPF (0-3)
[2022-05-12] MEDS ORDERED: ONDANSETRON 4 MG/2 ML VIAL ONE (18:33)
[2022-05-12] MEDS ORDERED: ONDANSETRON 4 MG/2 ML VIAL IV ONE (18:45)
--- NOTE | 2022-05-12 19:00 | NUR ---
Assumed care of patient from day shift RN. Patient here with c/o of constipation x25 days. S/P total hysterectomy last week. Also complaining of dog bite on right hand which occured yesterday.
--- NOTE | 2022-05-12 19:08 | NUR ---
Dr. Foster on bedside for MSE.
[2022-05-12] MEDS ORDERED: diphenhydrAMINE 50 MG/1 ML VIAL ONE (19:13)
[2022-05-12] MEDS ORDERED: DOXYCYCLINE HYCLATE 100 MG TABLET PO ONE (19:15)
[2022-05-12] MEDS ORDERED: METOCLOPRAMIDE HCL 10 MG/2 ML VIAL IV ONE (19:15)
[2022-05-12] MEDS ORDERED: IV NS 1000 ML 1,000 ML IV ONE (19:15)
[2022-05-12] MEDS ORDERED: MORPHINE SULFATE 2 MG/1 ML DISP.SYRIN IV ONE (19:15)
[2022-05-12] MEDS ORDERED: diphenhydrAMINE 50 MG/1 ML VIAL IV ONE (19:15)
[2022-05-12] MEDS ORDERED: CLINDAMYCIN HCL 150 MG CAPSULE PO ONE (19:15)
[2022-05-12] MEDS ORDERED: DOXYCYCLINE HYCLATE 100 MG TABLET ONE (19:34)
[2022-05-12] MEDS ORDERED: CLINDAMYCIN HCL 150 MG CAPSULE ONE (19:34)
[2022-05-12] MEDS ORDERED: MORPHINE SULFATE 2 MG/1 ML DISP.SYRIN ONE (19:34)
[2022-05-12] MEDS ORDERED: METOCLOPRAMIDE HCL 10 MG/2 ML VIAL ONE (19:34)
[2022-05-12] MEDS ORDERED: TDAP DIPH,PERTUSS,TET VAC/PF 0.5 ML DISP.SYRIN IM ONE ×2 (20:00)
--- NOTE | 2022-05-12 20:42 | NUR ---
Dr. Foster at bedside.
[2022-05-12] MEDS ORDERED: GOLYTELY 4000 ML BOTTLE PO ONE (21:00)
[2022-05-12] MEDS ORDERED: METRONIDAZOLE 500 MG/NS 100 ML PIGGYBACK IV ONE (23:15)
[2022-05-12] MEDS ORDERED: CIPROFLOXACIN IV 400 MG in PREMIXED 1 EACH IV ONE (23:15)
[2022-05-12] MEDS ORDERED: METRONIDAZOLE 500 MG/NS 100ML 100 ML IV ONE (23:16)
[2022-05-12] MEDS ORDERED: CIPROFLOXACIN IV 200 ML IV ONE (23:26)
[2022-05-13] MEDS ORDERED: MORPHINE SULFATE 4 MG/1 ML DISP.SYRIN ONE (00:05)
[2022-05-13] MEDS ORDERED: MORPHINE SULFATE 4 MG/1 ML DISP.SYRIN IV ONE (00:15)
[2022-05-13] MEDS ORDERED: diphenhydrAMINE 50 MG/1 ML VIAL ONE (00:37)
--- NOTE | 2022-05-13 00:38 | NUR ---
Epic panel call placed, spoke to Suellen , she stated she will get a hold of Mallorie Orozco for admitting.
[2022-05-13] MEDS ORDERED: diphenhydrAMINE 50 MG/1 ML VIAL IV ONE (00:45)
--- NOTE | 2022-05-13 00:53 | NUR ---
Dr. Foster on panel call with AIR TRAFFIC INSTRUCTOR Sam. Patient accepted for admission to Med surg unit. Dx. Infected right hand from a dog bite.
[2022-05-13] MEDS ORDERED: MAGNESIUM HYDROXIDE 30 ML LIQUID UDC PO PRN (01:00)
[2022-05-13] MEDS ORDERED: ALBUTEROL SULFATE 8 GM HFA.AER.AD IH PRN (01:00)
[2022-05-13] MEDS ORDERED: ACETAMINOPHEN 325 MG TABLET-SA PATIENTS-PAIN ONLY PO PRN (01:00)
[2022-05-13] MEDS ORDERED: ONDANSETRON HCL 4 MG TABLET PO PRN (01:00)
[2022-05-13] MEDS ORDERED: ACETAMINOPHEN 325 MG TABLET PO PRN (01:00)
[2022-05-13] MEDS ORDERED: REMEDY ESSENTIAL ZINC PASTE 113 GM TP PRN (01:00)
[2022-05-13] MEDS ORDERED: MAGNESIUM HYDROXIDE 30 ML LIQUID UDC PO ONE (01:00)
--- NOTE | 2022-05-13 01:40 | NUR ---
Pt. admitted to Med surg unit, Room 323, under care of TRAINING PROGRAM ASSISTANT Mallorie Vargas Belongs List completed
[2022-05-13] MEDS ORDERED: LACTULOSE 20 G/30 ML LIQUID UDC PO PRN (01:45)
[2022-05-13] MEDS ORDERED: OXYCODONE HCL 5 MG TABLET PO PRN (02:00)
[2022-05-13] MEDS: ONDANSETRON 4 MG/2 ML VIAL IV PRN ×2 (02:11→19:02)
[2022-05-13] MEDS ORDERED: ALBUTEROL SULFATE 2.5 MG/3 ML NEBU NEB PRN (02:15)
[2022-05-13 02:19] VITALS: BP 109/75
[2022-05-13] MEDS: IV NS 1000 ML 1,000 ML IV PRN ×2 (02:22→15:47)
[2022-05-13 04:00] VITALS: BP 104/63
[2022-05-13] MEDS ORDERED: CLINDAMYCIN PHOSPHATE 600 MG/4 ML VIAL ONE (05:15)
[2022-05-13] MEDS: CLINDAMYCIN PHOSPHATE IV 600 MG in IV DEXTROSE 5% 100 ML IV SCH ×3 (05:29→21:21)
[2022-05-13] MEDS ORDERED: FLUTICASONE/SALMETEROL 100/50 1 INH DISK.W.DEV INH SCH (06:00)
[2022-05-13] MEDS: PANTOPRAZOLE SODIUM 40 MG TABLET.DR PO SCH (06:20)
[2022-05-13] MEDS: FLUTICASONE/VILANTEROL 1 EACH BLST.W.DEV INH SCH (08:57)
[2022-05-13] MEDS: FOLIC ACID/VITAMIN B COMP W-C TABLET PO SCH (08:57)
[2022-05-13] MEDS: CITALOPRAM 10 MG TABLET PO SCH (08:57)
[2022-05-13] MEDS: PREGABALIN 50 MG CAPSULE PO SCH ×3 (08:58→17:38)
[2022-05-13] MEDS: NUTRISOURCE FIBER 4 GM PACKET PO SCH ×3 (08:59→18:46)
[2022-05-13] MEDS: NEPRO (VANILLA) 237 ML CAN PO SCH ×3 (08:59→18:45)
[2022-05-13] MEDS ORDERED: Linaclotide (Linzess) 145 MCG) PO SCH (09:00)
[2022-05-13] MEDS ORDERED: WHEAT DEXTRIN PO SCH (09:00)
--- NOTE | 2022-05-13 11:00 | NUR ---
PT COMPLAIN OF ABDOMINAL PAIN. 4-5 ON PAIN SCALE. GAVE NORCO 5-325MG PRN ORDERED. WILL REASSESS IN 1 HR.
[2022-05-13 11:15] VITALS: BP 104/66
[2022-05-13] MEDS: HYDROCODONE/APAP 5-325MG TABLET PO PRN (11:38)
[2022-05-13] MEDS ORDERED: MAGNESIUM CITRATE 296 ML BOTTLE PO ONE (13:30)
--- NOTE | 2022-05-13 13:35 | NUR ---
DR. HENAO DID A RECTAL EXAM. MAG CITRATE AND FLEET ENEMA WAS ORDERED. PT DRANK 1 BOTTLE OF MAG CITRATE. WILL MONITOR FOR SUCCESSFUL BOWEL ELIMINATION.
[2022-05-13] MEDS: FLEET ENEMA 133 ML BOTTLE RC ONE ×2 (14:04→14:36)
--- NOTE | 2022-05-13 14:36 | NUR ---
pt had a big bm after drinking magnesium citrate. fleet enema not administered.
[2022-05-13 15:12] VITALS: BP 109/70
[2022-05-13] MEDS: diphenhydrAMINE 50 MG CAPSULE PO PRN ×2 (16:42→21:20)
--- NOTE | 2022-05-13 17:00 | NUR ---
PT COMPLAIN OF ITCHINESS OF THE SKIN. DIPHENHYDRAMINE WAS GIVEN PER MD.
[2022-05-13 19:48] VITALS: BP 102/61
[2022-05-13] MEDS ORDERED: DOCUSATE SODIUM 250 MG CAPSULE PO SCH (21:00)
[2022-05-13] MEDS ORDERED: ZOLPIDEM 5 MG TABLET PO SCH (21:00)
[2022-05-13] MEDS ORDERED: TRAZODONE 50 MG TABLET NG SCH (21:00)
[2022-05-14 04:35] VITALS: BP 103/67
[2022-05-14] MEDS: PANTOPRAZOLE SODIUM 40 MG TABLET.DR PO SCH (06:22)
[2022-05-14] MEDS: CLINDAMYCIN PHOSPHATE IV 600 MG in IV DEXTROSE 5% 100 ML IV SCH ×2 (06:22→13:39)
[2022-05-14] MEDS ORDERED: MAGNESIUM CITRATE 296 ML BOTTLE PO ONE (07:00)
[2022-05-14 07:04] LABS: HEMATOCRIT 31.7 % (31.2-41.9); MEAN CORPUSCULAR HEMOGLOBIN 29.3 uug (24.7-32.8); MEAN CORPUSCULAR VOLUME 85.2 fL (75.5-95.3); PLATELET COUNT (AUTO) 249 K/uL (179-408)
[2022-05-14 07:15] LABS: CREATININE 0.7 mg/dL (0.6-1.3); MAGNESIUM 2.2 mg/dL (1.8-2.4); PHOSPHOROUS 3.2 mg/dL (2.5-4.9); POTASSIUM 4.4 mmol/L (3.5-5.1)
[2022-05-14 08:47] VITALS: BP 106/68
[2022-05-14] MEDS: HYDROCODONE/APAP 5-325MG TABLET PO PRN ×2 (08:48→13:30)
[2022-05-14] MEDS: FOLIC ACID/VITAMIN B COMP W-C TABLET PO SCH (08:48)
[2022-05-14] MEDS: PREGABALIN 50 MG CAPSULE PO SCH ×2 (08:52→13:38)
[2022-05-14] MEDS: NUTRISOURCE FIBER 4 GM PACKET PO SCH ×2 (08:54→13:39)
[2022-05-14] MEDS: NEPRO (VANILLA) 237 ML CAN PO SCH ×2 (08:54→13:39)
[2022-05-14] MEDS ORDERED: LINZESS 145 MG PO SCH (09:00)
[2022-05-14] MEDS ORDERED: [UNRECOGNIZED DRUG - OTHER] PO SCH (09:00)
--- NOTE | 2022-05-14 10:00 | NUR ---
Wound right hand resolved. No redness noted. Healed with scab.
[2022-05-14] MEDS: CITALOPRAM 10 MG TABLET PO SCH (10:27)
[2022-05-14] MEDS: FLUTICASONE/VILANTEROL 1 EACH BLST.W.DEV INH SCH (10:28)
[2022-05-14] MEDS: diphenhydrAMINE 50 MG CAPSULE PO PRN (10:34)
--- NOTE | 2022-05-14 13:30 | NUR ---
MED. PO WITH NORCO FOR C/O PAIN RIGHT HAND AND ABD. PAIN WITH GOOD EFFECT AFTER 45 MINUTES.
[2022-05-14 15:00] VITALS: BP 106/70
--- NOTE | 2022-05-14 15:30 | NUR ---
CALLED DR. HENAO. PREPARED FOR DISCHARGE. IV DC'D. ANGIOCATH REMOVED INTACT.
--- NOTE | 2022-05-14 16:00 | NUR ---
DISCHARGED AMBULATORY, ACCOMPANIED BY IRAIDA CHAN TO EX- IN AUTO. NO C/O DISCOMFORT.
[2022-05-14] MEDS ORDERED: CLIN300C12 PO (17:46)
[2022-05-14] MEDS ORDERED: METH12DI SUBCUT (17:46)
== END 2022-05-14 16:00 | disposition home health service (06) | DRG 392 ==
LOC: ER 16:45 → MEDSURG3 05-13 01:26
PROVIDERS: ADMIT Nurse Practitioner Acute Care; ATTEND Nurse Practitioner Acute Care
DX: K59.00 Constipation, unspecified (principal); E03.9 Hypothyroidism, unspecified; F32.A Depression, unspecified; G47.00 Insomnia, unspecified; G62.9 Polyneuropathy, unspecified; G89.4 Chronic pain syndrome; J45.909 Unspecified asthma, uncomplicated; K21.9 Gastro-esophageal reflux disease without esophagitis; Z85.43 Personal history of malignant neoplasm of ovary; Z90.5 Acquired absence of kidney; Z79.891 Long term (current) use of opiate analgesic; S61.051A Open bite of right thumb without damage to nail, initial encounter; W54.0XXA Bitten by dog, initial encounter; Y93.9 Activity, unspecified; N80.9 Endometriosis, unspecified; Z20.822 Contact with and (suspected) exposure to COVID-19; T40.2X5A Adverse effect of other opioids, initial encounter; Y92.89 Other specified places as the place of occurrence of the external cause
CPT/HCPCS: 36415; 71045; 73130; 83690; 83735; 84100; 84484; 85025; 87077; 87086; 90715; 93005; A4663; G0378; J0744; J1200; J2270; J2405; J2765; J3490; J7040; Q0163

== ENCOUNTER 2024-07-23 15:16 | Emergency (ER) | payer BC, OTHER ==
[~2024-07-23] VITALS: Ht 172.7 cm; Wt 52.2 kg
[~2024-07-23 15:16] MED LIST changes: +CLIN300C12 PO; +FLUT1DIS27 INH; +HYDR-4209 PO; +LACT10SO3 PO; +LINA145C PO; +LORA2VIA33 IJ; +METH12DI SUBCUT; +ONDA4TAB5 PO; +OXYC5CAP18 PO; +PREG150C46 PO; +ZOLP10TA2 PO
[2024-07-23] MEDS: IV NORMAL SALINE 1000 ML BAG IV ONE (16:35)
[2024-07-23 16:36] LABS: EOSINOPHILS # (AUTO) 0.1 K/uL (0.0-0.7); HEMATOCRIT 42.3 % (31.2-41.9); HEMOGLOBIN 13.8 g/dL (10.9-14.3); LYMPHOCYTES % (AUTO) 19.4 % (20.5-51.5); MEAN CORPUSCULAR HEMOGLOBIN 28.6 uug (24.7-32.8); MEAN CORPUSCULAR HGB CONC 33 g/dL (32.3-35.6); MEAN CORPUSCULAR VOLUME 87.7 fL (75.5-95.3); MONOCYTES # (AUTO) 0.4 K/uL (0.1-1.30); NEUTROPHILS # (AUTO) 3.6 K/uL (1.8-8.9); NEUTROPHILS % (AUTO) 70.6 % (38.5-71.5); PLATELET COUNT (AUTO) 246 K/uL (179-408); RED BLOOD CELL COUNT(AUTO) 4.82 MIL/uL (3.63-4.92); RED CELL DISTRIBUTION WIDTH 13.3 % (12.3-17.7); WHITE BLOOD COUNT (AUTO) 5.1 K/uL (3.8-11.8)
[2024-07-23 16:39] LABS: DIFFERENTIAL COMMENT 1
[2024-07-23] MEDS ORDERED: diphenhydrAMINE 50 MG/1 ML VIAL ONE (16:41)
[2024-07-23] MEDS: diphenhydrAMINE 50 MG/1 ML VIAL IV ONE (16:42)
[2024-07-23 16:52] LABS: ALANINE AMINOTRANSFERASE 13 U/L (14-59); ALBUMIN 4.5 g/dL (3.4-5.0); ALKALINE PHOSPHATASE 45 U/L (50-136); ASPARTATE AMINOTRANSFERASE 10 U/L (15-37); BILIRUBIN,DIRECT 0.2 mg/dL (0.0-0.2); BILIRUBIN,TOTAL 0.6 mg/dL (0.2-1.0); CALCIUM 9.5 mg/dL (8.5-10.1); CARBON DIOXIDE 28 mmol/L (21-32); CHLORIDE 103 mmol/L (98-107); CREATININE 0.7 mg/dL (0.6-1.3); GLUCOSE 103 mg/dL (74-106); LIPASE 47 U/L (16-77); POTASSIUM 4.3 mmol/L (3.5-5.1); SODIUM SERUM 142 mmol/L (136-145); UREA NITROGEN, BLOOD 10 mg/dL (7-18)
[2024-07-23 16:55] LABS: PREGNANCY TEST SERUM QUAN 1 miul/L (0-6)
[2024-07-23] MEDS: MAGNESIUM CITRATE 296 ML BOTTLE PO ONE (19:00)
[2024-07-23] MEDS ORDERED: LACTULOSE 20 G/30 ML LIQUID UDC ONE (19:07)
[2024-07-23] MEDS: LACTULOSE 20 G/30 ML LIQUID UDC PO ONE (19:13)
[2024-07-23] MEDS: GOLYTELY 4000 ML BOTTLE PO ONE (19:15)
[2024-07-23] MEDS ORDERED: METOCLOPRAMIDE HCL 10 MG/2 ML VIAL ONE (20:10)
[2024-07-23] MEDS ORDERED: KETOROLAC TROMETHAMINE 30 MG INJ ONE (20:10)
[2024-07-23] MEDS: METOCLOPRAMIDE HCL 10 MG/2 ML VIAL IV ONE (20:24)
[2024-07-23] MEDS: KETOROLAC TROMETHAMINE 30 MG INJ IVP ONE (20:24)
[2024-07-23 20:54] VITALS: BP 113/86; TEMP 97.8; O2SAT 98
== END 2024-07-23 20:45 | disposition home or self-care (01) ==
LOC: ER 15:17
DX: K59.00 Constipation, unspecified (principal); R11.2 Nausea with vomiting, unspecified; E03.9 Hypothyroidism, unspecified; R10.2 Pelvic and perineal pain; Z79.52 Long term (current) use of systemic steroids; Z79.891 Long term (current) use of opiate analgesic; Z79.899 Other long term (current) drug therapy; Z88.5 Allergy status to narcotic agent; Z88.1 Allergy status to other antibiotic agents
CPT/HCPCS: 36415; 71045; 83690; 84484; 85025; 85730; 93005; A4606; A4663; J1200; J1885; J2765; J7040; J7060